=== PATIENT | male | born 1960 | race Two or more races ===

== ENCOUNTER 2022-06-12 22:24 | Inpatient (IN) | payer OTHER, SELFPAY ==
[2022-06-12 22:40] VITALS: BP 104/64; PULSE 97; RESP 17; TEMP 36.4; O2SAT 98
[2022-06-12 23:36] VITALS: BMI 27.1
--- NOTE | 2022-06-13 01:16 | PC.ADMIT ---
PT IS A 62 YEAR OLD, PRIMARILY PORTUGUESE SPEAKING MALE TRANSFERRED TO FROM [facility]. 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 15 MINUTE SAFETY CHECKS. PSYCH GROUP. PT HAS NOT SMOKED IN 21 YEARS AND DOES NOT NEED NICOTINE REPLACEMENT. PT REFUSED THE FLU VACCINE. HIS VITAL SIGNS ARE STABLE AND LABS ARE UNREMARKABLE. PT HAD CATARACTS SURGERY IN MAR 2022 AND APRIL 2022. HE REPORTS MILD, OCCASIONAL BLEEDING THAT STILL OCCURS FROM HIS CORNEAS. PT WAS ADMITTED DUE TO INCREASED DEPRESSION BUT FEELS LIKE HE IS HERE ON FALSE PRETENSES. PTS SISTER CALLED TO GET HIM EVALUATED AFTER HE TOOK 4 OF HIS 50 MG TRAZADONE PILLS. PT REPORTS THIS WAS NOT AN ATTEMPT TO OVERDOSE AND THAT HE ACCIDENTALLY TOOK IT AGAIN FORGETTING HE HAD TAKEN IT EARLIER IN THE NIGHT. PT HAS PROVIDERS AND IS MEDICATION COMPLIANT. HE IS ALERT AND ORIENTEDX4. NO KNOWN ALLERGIES. DEPRESSED AFFECT. GOOD EYE CONTACT. GOOD INSIGHT. PT HAS STABLE HOUSING, REPORTING HE LIVES WITH HIS SISTER. HE IS TO HIS OF 35 YEARS WHO IS SICK AND LIVES IN [place] CURRENTLY. PT REPORTS POOR SLEEP. GOOD APPETITE WITH NO UNINTENTIONAL WEIGHT LOSS RECENTLY. PT HAS DIABETES, HTN, AND HYPERLIPIDEMIA. EKG WAS NORMAL. PT REPORTS HE HAD A SUICIDE ATTEMPT SEVERAL WEEKS AGO BUT DID NOT ELABORATE. HE REPORTS THAT HE TYPICALLY DOUBLES HIS TRAZADONE DOSE (PRESCRIBED 25MH BUT TAKES 50MG) DAILY AT BEDTIME. PT DENIES CURRENT FEELINGS OR SI AND CAN SEEK STAFF IF FEELING SUICIDAL. PT DENIES HI, AH, VH. NO ACUTE MEDICAL CONCERNS AT THIS TIME. PT FEELS SAFE ON THE UNIT.
[2022-06-13 08:53] LABS: Glucose, Whole Blood 159 mg/dL (60-115)
[2022-06-13 09:00] LABS: Creatinine Clr Calc Pharmacy 60.8; Estimated Glomerular Filt Rate 56
[2022-06-13] MEDS: Atorvastatin Calcium 80 MG TABLET PO (09:06)
[2022-06-13] MEDS: DULoxetine HCl 20 MG CAPSULE.DR PO (09:06)
[2022-06-13] MEDS: hydroCHLOROthiazide 25 MG TABLET PO (09:06)
[2022-06-13] MEDS: Gabapentin 100 MG CAPSULE PO ×3 (09:06→19:35)
[2022-06-13] MEDS: ARIPiprazole 2 MG TABLET PO (09:06)
[2022-06-13] MEDS: Escitalopram Oxalate 10 MG TABLET PO (09:06)
[2022-06-13] MEDS: busPIRone HCl 10 MG TABLET PO ×2 (09:06→19:35)
[2022-06-13] MEDS: lisinopriL 20 MG TABLET PO (09:07)
[2022-06-13 09:15] VITALS: BP 131/79; PULSE 88; RESP 18; TEMP 36.4
[2022-06-13] MEDS: Acetaminophen 325 MG TABLET 650 MG PO (09:21)
[2022-06-13] MEDS: metFORMIN HCl 1,000 MG TABLET 1000 MG PO ×2 (09:30→16:47)
--- NOTE | 2022-06-13 12:16 | HO.PM.IMCN ---
History of Present Illness Data of Consult Service Date: 06/13/22 Requesting physician: Sixto Canales Primary Care Provider: Ninoska Ahumada MD [facility] Reason for consult: medical H&P 62-year-old male with history of boi-ayhgsuu-dnckiyzsg type 2 diabetes, hypertension, hyperlipidemia, glaucoma, history cataracts, and depression admitted to Psychiatry with consult placed hospitalist service for medical H&P. Apparently he was brought to [facility] after being found drowsy. He had taken 4 tablets (200 mg) of his trazodone. He has no physical complaints at this time. He is a former smoker. Denies any alcohol use or drug use. Review of Systems Review of Systems: General: No fevers, malaise, unintentional weight loss HEENT: No blurred vision, diplopia. No sore throat, nasal congestion, rhinorrhea, sinus pain, ear pain Cardiovascular: No chest pain, palpitations, or leg edema Respiratory: No shortness of breath, wheezing, cough GI: No abdominal pain, nausea, vomiting, diarrhea, constipation, melena, hematochezia : No dysuria, hematuria, increased urinary frequency, decreased urinary output MSK: No myalgia, back pain Neuro: No headaches, weakness, paresthesias Skin: No rashes or lesions [facility] Medical History Depression HLD (hyperlipidemia) HTN (hypertension) Type 2 diabetes mellitus Social History Household Members: Family Household Members Other:: LIVES WITH SISTER Housing: Unknown / Unable to assess Do you presently have visiting nurse or other home services: No Patient Tobacco Use Status: Former Tobacco user Quit Date: 21 YEARS AGO Tobacco use type: Cigarette Smoked in Last 30 Days: No e-Cigarette/Vaping Use: Never Used Patient Interested in Nicotine Replacement: No Patient Given Instructions on How to Stop Smoking: No Second Hand Smoke Exposure: No Use of substances other than those prescribed or required for medical reasons: No Currently Displaying Signs/Symptoms of Drug Intoxication Withdrawal: No Any prior treatment program specific to substance use: No Have you been hit, kicked, punched, or otherwise hurt by someone within the past year? If so, by whom?: No Do you feel safe in your current relationship?: Yes Is there a partner from a previous relationship who is making you feel unsafe now?: No Are you made to feel afraid or neglected: No Advance Directives: No Advance Directives Information Provided: No Do you have thoughts of harming others: None Do you have a plan to hurt others: No Plan Recently lost weight without trying: No Eating poorly because of decreased appetite: No Nutrition Risks: No Nutritional Risk Poor oral hygiene: No service: No Sexual orientation: Straight/Heterosexual Meds Allergies Allergy/AdvReac Type Severity Reaction Status Date / Time No Known Allergies Allergy Verified 06/12/22 23:40 Active Medications: Current Medications Acetaminophen (Acetaminophen 325 Mg Tablet) 650 mg PO Q6H PRN PRN Reason: Headache/Pain Mild Scale (1-3) Last Admin: 06/13/22 09:21 Dose: 650 mg Al Hydroxide/Mg Hydroxide (Magnesium Hydrox/Alum Hydrox 30 Ml Oral.Susp) 30 ml PO Q6H PRN PRN Reason: Heartburn/Nausea Aripiprazole (Aripiprazole 2 Mg Tablet) 2 mg PO DAILY [facility] Last Admin: 06/13/22 09:06 Dose: 2 mg Atorvastatin Calcium (Atorvastatin Calcium 80 Mg Tablet) 80 mg PO DAILY [facility] Last Admin: 06/13/22 09:06 Dose: 80 mg Buspirone HCl (Buspirone Hcl 10 Mg Tablet) 10 mg PO BID [facility] Last Admin: 06/13/22 09:06 Dose: 10 mg Duloxetine HCl (Duloxetine Hcl 20 Mg Capsule.Dr) 20 mg PO DAILY [facility] Last Admin: 06/13/22 09:06 Dose: 20 mg Escitalopram Oxalate (Escitalopram Oxalate 10 Mg Tablet) 10 mg PO DAILY [facility] Last Admin: 06/13/22 09:06 Dose: 10 mg Gabapentin (Gabapentin 100 Mg Capsule) 100 mg PO TID [facility] Last Admin: 06/13/22 09:06 Dose: 100 mg Hydrochlorothiazide (Hydrochlorothiazide 25 Mg Tablet) 25 mg PO DAILY [facility]; Protocol Last Admin: 06/13/22 09:06 Dose: 25 mg Hydroxyzine HCl (Hydroxyzine Hcl 25 Mg Tablet) 25 mg PO Q6H PRN PRN Reason: Anxiety Ketorolac Tromethamine (Ketorolac Tromethamine 0.5% Op 5 Ml Drops) 1 drop EYE-BOTH BID [facility] Lisinopril (Lisinopril 20 Mg Tablet) 20 mg PO DAILY [facility]; Protocol Last Admin: 06/13/22 09:07 Dose: 20 mg Magnesium Hydroxide (Milk Of Magnesia 30 Ml Oral.Susp) 30 ml PO DAILY PRN PRN Reason: Constipation Metformin HCl (Metformin Hcl 1,000 Mg Tablet) 1,000 mg PO BIDWM [facility] Last Admin: 06/13/22 09:30 Dose: 1,000 mg Nicotine Polacrilex (Nicotine Polacrilex 2 Mg Gum) 4 mg BUCCAL Q2H PRN PRN Reason: Nicotine Cravings Prednisolone Acetate (Prednisolone Acetate 1 % Oph Susp 5 Ml Drpbtl) 1 drop EYE-BOTH BID [facility] Trazodone HCl (Trazodone Hcl 50 Mg Tablet) 50 mg PO BEDTIME MRX1 PRN PRN Reason: Insomnia Home Medications Medication Instructions Recorded Confirmed Last Taken Type aripiprazole 2 mg tablet 2 mg PO DAILY 06/13/22 06/13/22 06/12/22 History atorvastatin 80 mg tablet 80 mg PO DAILY 06/13/22 06/13/22 06/12/22 History buspirone 10 mg tablet 10 mg PO BID 06/13/22 06/13/22 06/12/22 History duloxetine 20 mg capsule,delayed 20 mg PO DAILY 06/13/22 06/13/22 06/12/22 History release escitalopram oxalate 10 mg tablet 10 mg PO DAILY 06/13/22 06/13/22 06/12/22 History gabapentin 100 mg capsule 100 mg PO TID 06/13/22 06/13/22 06/12/22 History hydrochlorothiazide 25 mg tablet 25 mg PO DAILY 06/13/22 06/13/22 06/12/22 History lisinopril 20 mg tablet 20 mg PO DAILY 06/13/22 06/13/22 06/12/22 History metformin 1,000 mg tablet 1,000 mg PO BID 06/13/22 06/13/22 06/12/22 History Physical Exam Vital Signs and Narrative: Vital Signs: Last Vital Signs Temp 97.5 F 06/13/22 09:15 Pulse 88 06/13/22 09:15 Resp 18 06/13/22 09:15 BP 131/79 06/13/22 09:15 Pulse Ox 98 06/12/22 22:40 O2 Del Method Room Air 06/13/22 09:15 BMI result Body Mass Index 27.1 Constitutional - Awake and Alert, No apparent distress Eyes - PERRLA, EOMI Cardiovascular - S1S2, RRR, No edema Respiratory - Normal lung expansion, Normal respiratory effort, No respiratory distress, CTA bilaterally Gastrointestinal - NT / ND; +BS; No rebound or guarding Extremities - no calf tenderness bilaterally, no swelling Musculoskeletal - Normal inspection, normal ROM Skin - Warm/Dry Neurological - Alert & oriented x3, CN II-XII in tact, 5/5 strength BUE and BLE Psychological - Appropriate affect Results Labs 06/13/22 08:00 Labs: Laboratory Results - last 24 hr 06/13/22 06/13/22 08:00 08:48 Estim Creat Clear Calc 60.8 Estimated GFR 56 POC Glucose 159 H Assessment and Plan (1) Routine medical exam: Status: Acute Plan 62-year-old male with history of fam-vnddjao-lslefgyie type 2 diabetes, hypertension, hyperlipidemia, glaucoma, history cataracts, and depression admitted to Psychiatry with consult placed hospitalist service for medical H&P. #Depression/insomnia -plan per psychiatry #Type 2 diabetes -poc glucose -diabetic diet -humalog on ss for hyperglycemia #HTN -reasonably controlled -continue home meds #HLD -continue statin #Glaucoma -recommend home drops, contact pt pharmacy Thank you for allowing me to participate in this consult. Signing off at this time. Please do not hesitate to call for further questions. Time Spent With Patient Time: Total time managing care of this patient today ____ minutes.
--- OUTSIDE RECORDS SUMMARY | 2022-06-13 14:20 | XMS_ITS | Continuity of Care Document ---
Author Name Unknown Organization [facility] Address [address] [place] [address]- Care Team Providers Care Manager Infusion Name Role Phone Ninoska Ahumada MD Primary Care Physician Encounter [facility] [id number] Date(s): 03/25/22 - 04/24/[address] [id number] Attending Physician: Xavi Britton Admitting Physician: AdmXavi maldonado Referring Physician: AdmtrXavi Allergies, Adverse Reactions, Alerts No Known Allergies Immunizations Given and Recorded Vaccine Date Status Refusal Reason [id number] 12y+ bivalent booster vax 12/05/21 Recorded influenza virus vaccine, inactivated 1 11/21/21 Gi wenceslao 1Early/Late Reason: Early/Late Reason: Other : Pt was seen in clinic for visit 11/21. Administered vax 11/21. Documented one day late d/t issue with encounter acct #. Medications atorvastatin 80 mg oral tablet 1 tablet, By Mouth, Daily, # 30 tablet, 1 Refills, Maintenance, 03/03/22 0:11:00 EST, [facility], 174, cm, 12/03/21 13:26:00 EDT, Height Start Date: 03/03/22 Status: Ordered diclofenac 1% topical gel 1 application, Topically, 3 times a day, PRN Pain , Mild, Take on schedule 3 times per day for 5 days and then only if needed, not to exceed 32 grams/day, # 100 Gm, 1 Refills, Maintenance, 11/20/21 18:02:00 EDT, Gel, [facility], Partial fill... Start Date: 11/20/21 Status: Ordered duloxetine 30 mg oral enteric coated capsule 1 capsule = 30 mg, By Mouth, 2 times a day, Start with 1 tablet daily, if well tolerated increase to 2 tablets daily, # 60 capsule, 1 Refills, Maintenance, 03/09/22 18:19:00 EST, EC Capsule, [facility], Hold from pill pack until stable dose,... Start Date: 03/09/22 Stop Date: 05/08/22 Status: Ordered Eucerin Plus topical lotion 1 application, Topically, 2 times a day, PRN for dry skin, to affected area, # 180 mL, 3 Refills, Maintenance, 03/12/22 11:29:00 EST, Lotion, [facility], Bulgarian instructions, 1 applicationTopically 2 times a day,PRN:for dry skin,Instr:to a... Start Date: 03/12/22 Status: Ordered gabapentin 100 mg oral capsule See Instructions, Take 100mg in morning, 100mg in afternoon, and 300mg at bedtime, # 150 tablet, Refills 3, Tot. Refills 3, Maintenance, 03/27/22 17:49:00 EST, Instructions Replace Required Details, Route to Pharmacy Electronically, [facility]... Start Date: 03/27/22 Status: Ordered hydrochlorothiazide-lisinopril 12.5 mg-20 mg oral tablet 1 tablet, By Mouth, Daily, # 30 tablet, 5 Refills, Maintenance, 11/02/21 11:16:00 EDT, Tablet, [facility], 1 tablet By Mouth Daily Start Date: 11/02/21 Status: Ordered lidocaine 5% topical film 1 patch, Topically, Daily, PRN Pain , Mild, for 30 days, remove after 12 hours, # 30 patch, 2 Refills, Acute 06/07/22 18:19:00 EDT, 03/09/22 18:19:00 EST, Film, [facility], Partial fill upon patient request if the prescription is for a sched... Start Date: 03/09/22 Stop Date: 06/07/22 Status: Ordered metFORMIN 1000 mg oral tablet 1 tablet = 1,000 mg, By Mouth, 2 times a day, # 60 tablet, 5 Refills, Maintenance, 03/08/22 13:32:00 EST, Tablet, [facility], For next bubble pack put in morning and bedtime bubbles, 174, cm, 12/03/21 13:26:00 EDT, Height Start Date: 03/08/22 Status: Ordered Prodigy No Code Test Strips Prodigy No Code Test Strips, See Instructions, # 50 each, Refills 11, Tot. Refills 11, Maintenance,use to test blood sugar BID as directed. PA approved specifically for [facility] [address]-03, 12/18/21 14:54:00 EDT, Supply, 174, cm, 12/03/21 13:26:00 EDT,... Start Date: 12/18/21 Status: Ordered Prodigy Twist Top 28G Lancets Prodigy Twist Top 28G Lancets, See Instructions, # 100 each, Refills 11, Tot. Refills 11, Maintenance, use to test blood sugar BID as directed, [facility] [id number], 12/18/21 14:54:00 EDT, Supply, 174, cm, 12/03/21 13:26:00 EDT, Height Start Date: 12/18/21 Status: Ordered Prodigy Voice Meter Prodigy Voice Meter, See Instructions, # 1 each, Refills 0, Tot. Refills 0, Maintenance, use to test blood sugar BID as directed. PA approved for [facility] [id number] specifically, 12/18/21 14:54:00 EDT, Supply, 174, cm, 12/03/21 13:26:00 EDT, Height Start Date: 12/18/21 Status: Ordered Trulicity Pen 0.75 mg/0.5 mL subcutaneous solution 0.5 mL = 0.75 mg, Subcutaneous Injection, Every week, rotate injection sites, # 2.5 mL, 5 Refills, Maintenance, 03/25/22 14:47:00 EST, Solution, [facility], Partial fill upon patient request if the prescription is for a schedule II opioid Start Date: 03/25/22 Stop Date: 09/21/22 Status: Ordered Problem List Condition Confirmation Course Effective Dates Status H ealth Status Informant Diabetes Confirmed Active Glaucoma Confirmed Active Hyperlipidemia Confirmed Active Hypertension Confirmed Active Diabetic neuropathy Confirmed Active Onychomycosis Confirmed Active Diabetic retinopathy Confirmed Active Social History Social History Type Response Smoking Status Former smoker, quit more than 30 days ago;Never; Other: quit at age 21; entered on: 11/02/21 Sex Patient Care team information Care Team Personnel Name: Ninoska Ahumada MD Position: S Resident Member Role: PCP Address: Address: [address] [place] [address]- Care Team Related Persons Name: TIA SOMMER Address: home [address] [place] [address]
--- OUTSIDE RECORDS SUMMARY | 2022-06-13 14:20 | XMS_ITS | Continuity of Care Document ---
Author Name Unknown Organization [facility] Address [address] [place] [id number]- Care Team Providers Care Information Security Officer Name Role Phone Ninoska Ahumada MD Primary Care Physician [phone] Encounter [facility] Date(s): 04/18/22 - 05/23/[address] [address]- Encounter Diagnosis Low back pain, unspecified(Final) - Discharge Disposition: A-D/C Home Attending Physician: Jelena Rosado MD Admitting Physician: Jelena Rosado MD Referring Physician: Jelena Rosado MD Allergies, Adverse Reactions, Alerts No Known Allergies Immunizations Given and Recorded Vaccine Date Status Refusal Reason [id number] 12y+ bivalent booster vax 12/05/21 Recorded influenza virus vaccine, inactivated 1 11/21/21 Gi ewnceslao 1Early/Late Reason: Early/Late Reason: Other : Pt was seen in clinic for visit 11/21. Administered vax 11/21. Documented one day late d/t issue with encounter acct #. Medications atorvastatin 80 mg oral tablet 1 tablet, By Mouth, Daily, # 30 tablet, 1 Refills, Maintenance, 03/03/22 0:11:00 EST, [facility], 174, cm, 12/03/21 13:26:00 EDT, Height Start Date: 03/03/22 Status: Ordered diclofenac 1% topical gel 1 application, Topically, 3 times a day, PRN Pain , Mild, Take on schedule 3 times per day for 5 days and then only if needed, not to exceed 32 grams/day, # 100 Gm, 1 Refills, Maintenance, 11/20/21 18:02:00 EDT, Gel, [facility], Partial fill... Start Date: 11/20/21 Status: Ordered duloxetine 30 mg oral enteric coated capsule 1 capsule = 30 mg, By Mouth, 2 times a day, Start with 1 tablet daily, if well tolerated increase to 2 tablets daily, # 60 capsule, 1 Refills, Maintenance, 03/09/22 18:19:00 EST, EC Capsule, [facility], Hold from pill pack until stable dose,... Start Date: 03/09/22 Stop Date: 05/08/22 Status: Ordered Eucerin Plus topical lotion 1 application, Topically, 2 times a day, PRN for dry skin, to affected area, # 180 mL, 3 Refills, Maintenance, 03/12/22 11:29:00 EST, Lotion, [facility], Salvadorean instructions, 1 applicationTopically 2 times a day,PRN:for dry skin,Instr:to a... Start Date: 03/12/22 Status: Ordered gabapentin 100 mg oral capsule See Instructions, Take 100mg in morning, 100mg in afternoon, and 300mg at bedtime, # 150 tablet, Refills 3, Tot. Refills 3, Maintenance, 03/27/22 17:49:00 EST, Instructions Replace Required Details, Route to Pharmacy Electronically, [facility]... Start Date: 03/27/22 Status: Ordered hydrochlorothiazide-lisinopril 12.5 mg-20 mg oral tablet 1 tablet, By Mouth, Daily, # 30 tablet, 5 Refills, Maintenance, 11/02/21 11:16:00 EDT, Tablet, [facility], 1 tablet By Mouth Daily Start Date: 11/02/21 Status: Ordered lidocaine 5% topical film 1 patch, Topically, Daily, PRN Pain , Mild, for 30 days, remove after 12 hours, # 30 patch, 2 Refills, Acute 06/07/22 18:19:00 EDT, 03/09/22 18:19:00 EST, Film, [facility], Partial fill upon patient request if the prescription is for a sched... Start Date: 03/09/22 Stop Date: 06/07/22 Status: Ordered metFORMIN 1000 mg oral tablet 1 tablet = 1,000 mg, By Mouth, 2 times a day, # 60 tablet, 5 Refills, Maintenance, 03/08/22 13:32:00 EST, Tablet, [facility], For next bubble pack put in morning and bedtime bubbles, 174, cm, 12/03/21 13:26:00 EDT, Height Start Date: 03/08/22 Status: Ordered Prodigy No Code Test Strips Prodigy No Code Test Strips, See Instructions, # 50 each, Refills 11, Tot. Refills 11, Maintenance,use to test blood sugar BID as directed. PA approved specifically for [facility] [id number], 12/18/21 14:54:00 EDT, Supply, 174, cm, 12/03/21 13:26:00 EDT,... Start Date: 12/18/21 Status: Ordered Prodigy Twist Top 28G Lancets Prodigy Twist Top 28G Lancets, See Instructions, # 100 each, Refills 11, Tot. Refills 11, Maintenance, use to test blood sugar BID as directed, [facility] [id number], 12/18/21 14:54:00 EDT, Supply, 174, cm, 12/03/21 13:26:00 EDT, Height Start Date: 12/18/21 Status: Ordered Prodigy Voice Meter Prodigy Voice Meter, See Instructions, # 1 each, Refills 0, Tot. Refills 0, Maintenance, use to test blood sugar BID as directed. PA approved for [facility] [id number] specifically, 12/18/21 14:54:00 EDT, Supply, 174, cm, 12/03/21 13:26:00 EDT, Height Start Date: 12/18/21 Status: Ordered Trulicity Pen 0.75 mg/0.5 mL subcutaneous solution 0.5 mL = 0.75 mg, Subcutaneous Injection, Every week, rotate injection sites, # 2.5 mL, 5 Refills, Maintenance, 03/25/22 14:47:00 EST, Solution, [facility], Partial fill upon patient request if the prescription is for a schedule II opioid . Start Date: 03/25/22 Stop Date: 09/21/22 Status: [...] Resident Member Role: PCP Address: Address: [address] [place] [address]- Care Team Related Persons Name: TIA SOMMER Address: [address] [place] [address]
--- OUTSIDE RECORDS SUMMARY | 2022-06-13 14:20 | XMS_ITS | Continuity of Care Document ---
Author Name Unknown Organization [facility] Address [address] [place] [address]- Care Team Providers Care Driver Service Technician Name Role Phone Ninoska Ahumada MD Primary Care Physician En[place] [facility] Date(s): 10/31/21 - 11/30/[address] [address] Allergies, Adverse Reactions, Alerts No Known Allergies Immunizations Given and Recorded Vaccine Date Status Refusal Reason influenza virus vaccine, inactivated 1 11/21/21 Gi wenceslao 1Early/Late Reason: Early/Late Reason: Other : Pt was seen in clinic for visit 11/21. Administered vax 11/21. Documented one day late d/t issue with encounter acct #. Medications atorvastatin 20 mg oral tablet 1 tablet = 20 mg, By Mouth, Daily, # 30 tablet, 5 Refills, Maintenance, 11/02/21 11:17:00 EDT, Tablet, [facility] Start Date: 11/02/21 Status: Ordered Contour Next EZ Test Strips See Instructions, # 200 each, Refills 3, Tot. Refills 3, Maintenance, To check POC glucose twice per day for diabetes mellitus type 2, 11/20/21 17:49:00 EDT, Supply, 174, cm, 11/20/21 15:40:00 EDT, Height Start Date: 11/20/21 Status: Ordered diclofenac 1% topical gel 1 application, Topically, 3 times a day, PRN Pain , Mild, Take on schedule 3 times per day for 5 days and then only if needed, not to exceed 32 grams/day, # 100 Gm, 1 Refills, Maintenance, 11/20/21 18:02:00 EDT, Gel, [facility], Partial fill... Start Date: 11/20/21 Status: Ordered Freestyle Lite Lancets See Instructions, # 100 each, Refills 5, Tot. Refills 5, Maintenance, use to check BS 2 times a daydx: E: 11.9, 11/02/21 11:22:00 EDT, Compound Start Date: 11/02/21 Stop Date: 05/01/22 Status: Ordered Freestyle Lite Test Strips See Instructions, # 100 each, Refills 5, Tot. Refills 5, Maintenance, FSBS 2 times aday Dx: E: 11.9, 11/02/21 11:22:00 EDT, Compound Start Date: 11/02/21 Status: Ordered gabapentin 100 mg oral capsule See Instructions, Take 100mg in morning, 100mg in afternoon, and 300mg at bedtime, # 150 tablet, Refills 3, Tot. Refills 3, Maintenance, 11/20/21 17:50:00 EDT, Instructions Replace Required Details, Route to Pharmacy Electronically, [facility]... Start Date: 11/20/21 Status: Ordered hydrochlorothiazide-lisinopril 12.5 mg-20 mg oral tablet 1 tablet, By Mouth, Daily, # 30 tablet, 5 Refills, Maintenance, 11/02/21 11:16:00 EDT, Tablet, [facility], 1 tablet By Mouth Daily Start Date: 11/02/21 Status: Ordered metFORMIN 1000 mg oral tablet 1 tablet = 1,000 mg, By Mouth, 2 times a day, # 60 tablet, 5 Refills, Maintenance, 11/02/21 11:18:00 EDT, Tablet, [facility] Start Date: 11/02/21 Status: Ordered Trulicity Pen 0.75 mg/0.5 mL subcutaneous solution 0.5 mL = 0.75 mg, Subcutaneous Injection, Every week, rotate injection sites, # 2.5 mL, 3 Refills, Maintenance, 11/20/21 17:48:00 EDT, Solution, [facility], Partial fill upon patient request if the prescription is for a schedule II opioid Start Date: 11/20/21 Stop Date: 03/20/22 Status: Ordered Problem List Condition Confirmation Course Effective Dates Status H ealth Status Informant Diabetes Confirmed Active Hyperlipidemia Confirmed Active Hypertension Confirmed Active Diabetic neuropathy Confirmed Active Onychomycosis Confirmed Active Social History Social History Type Response Smoking Status Former smoker, quit more than 30 days ago;Never; Other: quit at age 21; entered on: 11/02/21 Sex Patient Care team information Personnel Name: Ninoska Ahumada MD Address: Address: [address] [place] [id number]
--- OUTSIDE RECORDS SUMMARY | 2022-06-13 14:20 | XMS_ITS | Continuity of Care Document ---
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 Administered vax 11/21. Documented one day late d/t issue with encounter acct #. Medications atorvastatin 80 mg oral tablet 1 tablet = 80 mg, By Mouth, Daily, # 90 tablet, 0 Refills, Maintenance, 12/03/21 13:31:00 EDT, Tablet, [facility], Partial fill upon patient request if the prescription is for a schedule IIopioid drug., 174, cm, 12/03/21 13:26:00 EDT, Height Start Date: 12/03/21 Status: Ordered Contour glucometer Contour glucometer, See Instructions, # 1 each, Refills 0, Tot. Refills 0, Maintenance, Use every day to measure blood sugar levels, 12/05/21 15:40:00 EDT, Supply, 174, cm, 12/03/21 13:26:00 EDT, Height Start Date: 12/05/21 Status: Ordered Contour lancets Contour lancets, See Instructions, # 90 each, Refills 0, Tot. Refills 0, Maintenance, Use 3 times aday, 12/05/21 15:42:00 EDT, Supply, 174, cm, 12/03/21 13:26:00 EDT, Height Start Date: 12/05/21 Status: Ordered Contour Next EZ Test Strips See Instructions, # 200 each, Refills 3, Tot. Refills 3, Maintenance, To check POC glucose twice per day for diabetes mellitus type 2, 11/20/21 17:49:00 EDT, Supply, 174, cm, 11/20/21 15:40:00 EDT, Height Start Date: 11/20/21 Status: Ordered cyclobenzaprine 5 mg oral tablet 1 tablet = 5 mg, By Mouth, Daily, for 14 days, # 14 tablet, 0 Refills, Acute 12/17/21 13:55:00 EDT,12/03/21 13:55:00 EDT, Tablet, [facility], Partial fill upon patient request if the prescription is for a schedule II opioid drug., 174, cm,... Start Date: 12/03/21 Stop Date: 12/17/21 Status: Ordered diclofenac 1% topical gel 1 application, Topically, 3 times a day, PRN Pain , Mild, Take on schedule 3 times per day for 5 days and then only if needed, not to exceed 32 grams/day, # 100 Gm, 1 Refills, Maintenance, 11/20/21 18:02:00 EDT, Gel, [facility], Partial fill... Start Date: 11/20/21 Status: [...] Replace Required Details, Route to Pharmacy Electronically, [email or web address]... Start Date: 11/20/21 Status: Ordered hydrochlorothiazide-lisinopril 12.5 mg-20 mg oral tablet 1 tablet, By Mouth, Daily, # 30 tablet, 5 Refills, Maintenance, 11/02/21 11:16:00 EDT, Tablet, [facility], 1 tablet By Mouth Daily Start Date: 11/02/21 Status: Ordered metFORMIN 1000 mg oral tablet 1 tablet = 1,000 mg, By Mouth, 2 times a day, # 60 tablet, 5 Refills, Maintenance, 11/02/21 11:18:00 EDT, Tablet, [facility] Start Date: 11/02/21 Status: Ordered Trulicity Pen 0.75 mg/0.5 mL subcutaneous solution 0.5 mL = 0.75 mg, Subcutaneous Injection, Every week, rotate injection sites, # 2.5 mL, 3 Refills, Maintenance, 11/20/21 17:48:00 EDT, Solution, [facility], Partial fill upon patient request if the prescription is for a schedule II opioid . Start Date: 11/20/21 Stop Date: 03/20/22 Status: [...] Personnel Name: Ninoska Ahumada MD Address: Address: [address] [place] [address]
--- OUTSIDE RECORDS SUMMARY | 2022-06-13 14:20 | XMS_ITS | Continuity of Care Document ---
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 Name Role Phone Brandyn HINES, Ninoska Nieves Primary Care Physician [phone] Encounter [facility] Date(s): 12/03/21 - 01/02/[address] [address]- Attending Physician: Xavi Britton Admitting Physician: AdmXavi [...] 0 Refills, Maintenance, 12/03/21 13:31:00 EDT, Tablet, [facility], Partial fill upon patient request if the prescription is for a schedule IIopioid drug., 174, cm, 12/03/21 13:26:00 EDT, Height Start Date: 12/03/21 Status: Ordered diclofenac 1% topical gel 1 application, Topically, 3 times a day, PRN Pain , Mild, Take on schedule 3 times per day for 5 days and then only if needed, not to exceed 32 grams/day, # 100 Gm, 1 Refills, Maintenance, 11/20/21 18:02:00 EDT, Gel, [facility], Partial fill... Start Date: 11/20/21 Status: Ordered gabapentin 100 mg oral capsule See Instructions, Take 100mg in morning, 100mg in afternoon, and 300mg at bedtime, # 150 tablet, Refills 3, Tot. Refills 3, Maintenance, 11/20/21 17:50:00 EDT, Instructions Replace Required Details, Route to Pharmacy Electronically, [facility]... Start Date: 11/20/21 Status: Ordered hydrochlorothiazide-lisinopril 12.5 mg-20 mg oral tablet 1 tablet, By Mouth, Daily, # 30 tablet, 5 Refills, Maintenance, 11/02/21 11:16:00 EDT, Tablet, [facility], 1 tablet By Mouth Daily Start Date: 11/02/21 Status: Ordered metFORMIN 1000 mg oral tablet 1 tablet = 1,000 mg, By Mouth, 2 times a day, # 60 tablet, 5 Refills, Maintenance, 11/02/21 11:18:00 EDT, Tablet, [facility] Start Date: 11/02/21 Status: Ordered Prodigy No Code Test Strips Prodigy No Code Test Strips, See Instructions, # 50 each, Refills 11, Tot. Refills 11, Maintenance,use to test blood sugar BID as directed. PA approved specifically for [facility] [address]-54, 12/18/21 14:54:00 EDT, Supply, 174, cm, 12/03/21 13:26:00 EDT,... Start Date: 12/18/21 Status: Ordered Prodigy Twist Top 28G Lancets Prodigy Twist Top 28G Lancets, See Instructions, # 100 each, Refills 11, Tot. Refills 11, Maintenance, use to test blood sugar BID as directed, [facility] [id number], 12/18/21 14:54:00 EDT, Supply, 174, cm, 12/03/21 13:26:00 EDT, Height Start Date: 12/18/21 Status: Ordered Prodigy Voice Meter Prodigy Voice Meter, See Instructions, # 1 each, Refills 0, Tot. Refills 0, Maintenance, use to test blood sugar BID as directed. PA approved for [facility] [id number] specifically, 12/18/21 14:54:00 EDT, Supply, 174, cm, 12/03/21 13:26:00 EDT, Height Start Date: 12/18/21 Status: Ordered Trulicity Pen 0.75 mg/0.5 mL subcutaneous solution 0.5 mL = 0.75 mg, Subcutaneous Injection, Every week, rotate injection sites, # 2.5 mL, 3 Refills, Maintenance, 11/20/21 17:48:00 EDT, Solution, [facility], Partial fill upon patient request if [...] S Resident Member Role: PCP Address: Address: [address] [place] [address]- Care Team Related Persons Name: TIA SOMMER Address: home [address] [place] [address]
--- OUTSIDE RECORDS SUMMARY | 2022-06-13 14:20 | XMS_ITS | Continuity of Care Document ---
Author Name Unknown Organization [facility] Address [address] [place] [address]- Care Team Providers Care Advertising Dispatch Clerk Name Role Phone Ninoska Ahumada MD Primary Care Physician [facility]counter [facility] Date(s): 03/14/22 - 04/13/[address] [address]- Allergies, Adverse Reactions, Alerts No Known Allergies Immunizations Given and Recorded Vaccine Date Status Refusal Reason [id number] 12y+ bivalent booster vax 12/05/21 Recorded influenza virus vaccine, inactivated 1 11/21/21 Gi wenceslao 1Early/Late Reason: Early/Late Reason: Other : Pt was seen in clinic for visit 11/21. Administered vax 11/21. Documented one day late d/t issue with encounter acct #. Medications atorvastatin 80 mg oral tablet 1 tablet, By Mouth, Daily, # 30 tablet, 1 Refills, Maintenance, 03/03/22 0:11:00 EST, [facility], 174, cm, 12/03/21 13:26:00 EDT, Height Start Date: 03/03/22 Status: Ordered diclofenac 1% topical gel 1 application, Topically, 3 times a day, PRN Pain , Mild, Take on schedule 3 times per day for 5 days and then only if needed, not to exceed 32 grams/day, # 100 Gm, 1 Refills, Maintenance, 11/20/21 18:02:00 EDT, Gel, [facility], Partial fill... Start Date: 11/20/21 Status: Ordered duloxetine 30 mg oral enteric coated capsule 1 capsule = 30 mg, By Mouth, 2 times a day, Start with 1 tablet daily, if well tolerated increase to 2 tablets daily, # 60 capsule, 1 Refills, Maintenance, 03/09/22 18:19:00 EST, EC Capsule, [facility], Hold from pill pack until stable dose,... Start Date: 03/09/22 Stop Date: 05/08/22 Status: Ordered Eucerin Plus topical lotion 1 application, Topically, 2 times a day, PRN for dry skin, to affected area, # 180 mL, 3 Refills, Maintenance, 03/12/22 11:29:00 EST, Lotion, [facility], Mauritian instructions, 1 applicationTopically 2 times a day,PRN:for dry skin,Instr:to a... Start Date: 03/12/22 Status: Ordered gabapentin 100 mg oral capsule See Instructions, Take 100mg in morning, 100mg in afternoon, and 300mg at bedtime, # 150 tablet, Refills 3, Tot. Refills 3, Maintenance, 03/27/22 17:49:00 EST, Instructions Replace Required Details, Route to Pharmacy Electronically, [facility]... Start Date: 03/27/22 Status: Ordered hydrochlorothiazide-lisinopril 12.5 mg-20 mg oral tablet 1 tablet, By Mouth, Daily, # 30 tablet, 5 Refills, Maintenance, 11/02/21 11:16:00 EDT, Tablet, [facility], 1 tablet By Mouth Daily Start Date: 11/02/21 Status: Ordered lidocaine 5% topical film 1 patch, Topically, Daily, PRN Pain , Mild, for 30 days, remove after 12 hours, # 30 patch, 2 Refills, Acute 06/07/22 18:19:00 EDT, 03/09/22 18:19:00 EST, Film, [facility], Partial fill upon patient request if the prescription is for a sched... Start Date: 03/09/22 Stop Date: 06/07/22 Status: Ordered metFORMIN 1000 mg oral tablet 1 tablet = 1,000 mg, By Mouth, 2 times a day, # 60 tablet, 5 Refills, Maintenance, 03/08/22 13:32:00 EST, Tablet, [facility], For next bubble pack put in morning and bedtime bubbles, 174, cm, 12/03/21 13:26:00 EDT, Height Start Date: 03/08/22 Status: Ordered Prodigy No Code Test Strips Prodigy No Code Test Strips, See Instructions, # 50 each, Refills 11, Tot. Refills 11, Maintenance,use to test blood sugar BID as directed. PA approved specifically for [facility] [address]-61, 12/18/21 14:54:00 EDT, Supply, 174, cm, 12/03/21 13:26:00 EDT,... Start Date: 12/18/21 Status: Ordered Prodigy Twist Top 28G Lancets Prodigy Twist Top 28G Lancets, See Instructions, # 100 each, Refills 11, Tot. Refills 11, Maintenance, use to test blood sugar BID as directed, [facility] [id number], 12/18/21 14:54:00 EDT, Supply, 174, cm, 12/03/21 13:26:00 EDT, Height Start Date: 12/18/21 Status: Ordered Prodigy Voice Meter Prodigy Voice Meter, See Instructions, # 1 each, Refills 0, Tot. Refills 0, Maintenance, use to test blood sugar BID as directed. PA approved for [facility] [id number] specifically, 12/18/21 14:54:00 EDT, Supply, 174, cm, 12/03/21 13:26:00 EDT, Height Start Date: 12/18/21 Status: Ordered Trulicity Pen 0.75 mg/0.5 mL subcutaneous solution 0.5 mL = 0.75 mg, Subcutaneous Injection, Every week, rotate injection sites, # 2.5 mL, 5 Refills, Maintenance, 03/25/22 14:47:00 EST, Solution, [facility], Partial fill upon patient request if the prescription is for a schedule II opioid dr... Start Date: 03/25/22 Stop Date: 09/21/22 Status: [...] Resident Member Role: PCP Address: Address: [address] [place] [address]- Care Team Related Persons Name: TIA SOMMER Address: home [address] [place] [address]
--- OUTSIDE RECORDS SUMMARY | 2022-06-13 14:20 | XMS_ITS | Continuity of Care Document ---
Author Name Unknown Organization [facility] Address [address] [place] [address]- Care Team Providers Care Inspector Weights And Measures Name Role Phone Brandyn HINES, Ninoska Nieves Primary Care Physician [phone] Encounter [facility] Date(s): 02/22/22 - 03/24/[address] [address]- Allergies, Adverse Reactions, Alerts No Known Allergies Immunizations Given and Recorded Vaccine Date Status Refusal Reason [id number] 12y+ bivalent booster vax 12/05/21 Recorded influenza virus vaccine, inactivated 1 11/21/21 Gi wenceslao 1Early/Late Reason: Early/Late Reason: Other : Pt was seen in clinic for visit 11/21. Administered vax 11/21. Documented one day late d/t issue with encounter acct #. Medications atorvastatin 80 mg oral tablet 1 tablet, By Mouth, Daily, # 30 tablet, 1 Refills, Maintenance, 03/03/22 0:11:00 EST, [facility], 174, cm, 12/03/21 13:26:00 EDT, Height Start Date: 03/03/22 Status: Ordered diclofenac 1% topical gel 1 application, Topically, 3 times a day, PRN Pain , Mild, Take on schedule 3 times per day for 5 days and then only if needed, not to exceed 32 grams/day, # 100 Gm, 1 Refills, Maintenance, 11/20/21 18:02:00 EDT, Gel, [facility], Partial fill... Start Date: 11/20/21 Status: Ordered duloxetine 30 mg oral enteric coated capsule 1 capsule = 30 mg, By Mouth, 2 times a day, Start with 1 tablet daily, if well tolerated increase to 2 tablets daily, # 60 capsule, 1 Refills, Maintenance, 03/09/22 18:19:00 EST, EC Capsule, [facility], Hold from pill pack until stable dose,... Start Date: 03/09/22 Stop Date: 05/08/22 Status: Ordered Eucerin Plus topical lotion 1 application, Topically, 2 times a day, PRN for dry skin, to affected area, # 180 mL, 3 Refills, Maintenance, 03/12/22 11:29:00 EST, Lotion, [facility], Ecuadorean instructions, 1 applicationTopically 2 times a day,PRN:for dry skin,Instr:to a... Start Date: 03/12/22 Status: Ordered gabapentin 100 mg oral capsule See Instructions, Take 100mg in morning, 100mg in afternoon, and 300mg at bedtime, # 150 tablet, Refills 3, Tot. Refills 3, Maintenance, 11/20/21 17:50:00 EDT, Instructions Replace Required Details, Route to Pharmacy Electronically, [facility]... Start Date: 11/20/21 Status: Ordered hydrochlorothiazide-lisinopril 12.5 mg-20 mg oral tablet 1 tablet, By Mouth, Daily, # 30 tablet, 5 Refills, Maintenance, 11/02/21 11:16:00 EDT, Tablet, [facility], 1 tablet By Mouth Daily Start Date: 11/02/21 Status: Ordered lidocaine 5% topical film 1 patch, Topically, Daily, PRN Pain , Mild, for 30 days, remove after 12 hours, # 30 patch, 2 Refills, Acute 06/07/22 18:19:00 EDT, 03/09/22 18:19:00 EST, Film, [facility], Partial fill upon patient request if the prescription is for a sched... Start Date: 03/09/22 Stop Date: 06/07/22 Status: Ordered metFORMIN 1000 mg oral tablet 1 tablet = 1,000 mg, By Mouth, 2 times a day, # 60 tablet, 5 Refills, Maintenance, 03/08/22 13:32:00 EST, Tablet, [facility], For next bubble pack put in morning and bedtime bubbles, 174, cm, 12/03/21 13:26:00 EDT, Height Start Date: 03/08/22 Status: Ordered Prodigy No Code Test Strips Prodigy No Code Test Strips, See Instructions, # 50 each, Refills 11, Tot. Refills 11, Maintenance,use to test blood sugar BID as directed. PA approved specifically for [facility] [id number], 12/18/21 14:54:00 EDT, Supply, 174, cm, 12/03/21 13:26:00 EDT,... Start Date: 12/18/21 Status: Ordered Prodigy Twist Top 28G Lancets Prodigy Twist Top 28G Lancets, See Instructions, # 100 each, Refills 11, Tot. Refills 11, Maintenance, use to test blood sugar BID as directed, [facility] [id number], 12/18/21 14:54:00 EDT, Supply, 174, cm, 12/03/21 13:26:00 EDT, Height Start Date: 12/18/21 Status: Ordered Prodigy Voice Meter Prodigy Voice Meter, See Instructions, # 1 each, Refills 0, Tot. Refills 0, Maintenance, use to test blood sugar BID as directed. PA approved for [facility] [id number] specifically, 12/18/21 14:54:00 EDT, Supply, 174, cm, 12/03/21 13:26:00 EDT, Height Start Date: 12/18/21 Status: Ordered Trulicity Pen 0.75 mg/0.5 mL subcutaneous solution 0.5 mL = 0.75 mg, Subcutaneous Injection, Every week, rotate injection sites, # 2.5 mL, 5 Refills, Maintenance, 03/22/22 10:31:00 EST, Solution, [facility], Partial fill upon patient request if the prescription is for a schedule II opioid . Start Date: 03/22/22 Stop Date: 09/18/22 Status: Ordered Problem List Condition Confirmation Course [...] Resident Member Role: PCP Address: Address: [address] [place] [address]- [place] Care Team Related Persons Name: TIA SOMMER Address: home [address] [place] [address]
[2022-06-13 16:22] LABS: Glucose, Whole Blood 166 mg/dL (60-115)
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
[2022-06-13 19:44] LABS: Glucose, Whole Blood 172 mg/dL (60-115)
[2022-06-13] MEDS: prednisoLONE Acetate 1 % Oph Susp 5 ML DRPBTL 1 DROP EYE-BOTH (20:16)
--- NOTE | 2022-06-13 22:19 | HE.PHANOTE ---
Pharmacy has received patient's Trulicity. When med was received by RN, it was not cold. No one able to confirm how long it has been out of the fridge. Medication is only good for 14 days out of the fridge. Since medication was last dispensed on 06/04/22, we can only assume medication is good until 14 days later on 06/18/22. Will have AM pharmacy call [facility] to confirm when medications was picked up. Dr. Gutierrez aware that we may only be able to use 1 of the 4 syringes that were received. Tiny Perez, PharmD
--- NOTE | 2022-06-14 07:42 | HE.PHANOTE ---
RE TRULICTY PATIENT HAD BOX OF FOUR TRULICITY PENS BROUGHT IN ON 06/13. SINCE COLD CHAIN CANNOT BE VERIFIED, UP TO 2 PENS ARE GOOD SINCE DATE FILLED. I WILL BE SENDING THE DOSE UP FOR 06/14 AND LABELING THE PEN DUE FOR 06/21. [facility]
[2022-06-14 07:51] LABS: Glucose, Whole Blood 143 mg/dL (60-115)
[2022-06-14] MEDS: Gabapentin 100 MG CAPSULE PO ×3 (08:28→21:10)
[2022-06-14] MEDS: hydroCHLOROthiazide 12.5 MG TABLET PO (08:28)
[2022-06-14] MEDS: Atorvastatin Calcium 80 MG TABLET PO (08:28)
[2022-06-14] MEDS: busPIRone HCl 10 MG TABLET PO (08:28)
[2022-06-14] MEDS: lisinopriL 20 MG TABLET PO (08:28)
[2022-06-14] MEDS: Escitalopram Oxalate 10 MG TABLET PO (08:28)
[2022-06-14] MEDS: DULoxetine HCl 20 MG CAPSULE.DR PO (08:28)
[2022-06-14] MEDS: metFORMIN HCl 1,000 MG TABLET 1000 MG PO ×2 (08:28→17:08)
[2022-06-14] MEDS: ARIPiprazole 2 MG TABLET PO (08:28)
[2022-06-14] MEDS: Acetaminophen 325 MG TABLET 650 MG PO (08:28)
[2022-06-14 08:31] VITALS: BP 118/74; PULSE 85; RESP 18; TEMP 36.2; O2SAT 99
[2022-06-14] MEDS: prednisoLONE Acetate 1 % Oph Susp 5 ML DRPBTL 1 DROP EYE-BOTH ×2 (08:47→21:11)
[2022-06-14] MEDS: Ibuprofen 800 MG TABLET PO (10:06)
[2022-06-14] MEDS: Lidocaine 4 % Patch ADH..PATCH 1 PATCH TRANSDERMA (10:07)
[2022-06-14 10:56] LABS: Alanine Aminotransferase 19 U/L (0-40); Alkaline Phosphatase 51 U/L (39-117); Anion Gap 14 (12-20); Aspartate Amino Transferase 16 U/L (5-37); Blood Urea Nitrogen 27 mg/dL (9-16); Calcium 9.4 mg/dL (8.4-10.2); Carbon Dioxide 27 mmol/L (22-29); Chloride 103 mmol/L (96-108); Creatinine Clr Calc Pharmacy 73.9; Estimated Glomerular Filt Rate > 60; Glucose Fasting 153 mg/dL (60-99); Potassium 4.6 mmol/L (3.3-5.1); Sodium 139 mmol/L (135-145)
[2022-06-14] MEDS: Ketorolac Tromethamine 0.5% Op 5 ML DROPS 1 DROP EYE-BOTH ×3 (11:16→21:12)
[2022-06-14 12:09] LABS: Glucose, Whole Blood 129 mg/dL (60-115)
--- NOTE | 2022-06-14 15:16 | HO.PSYCHPN ---
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 Reports sleeping well, meds effective. Discussed family meeting, pt agrees, however, sister Annabel is going away and [place] will need transportation and translation, Annabel will return 06/24. Call to Annabel [phone] She asks that we not share her information with pt at this time. Current OD is #3 and family worries pt will suicide. Irlanda reports pt came to [place] as he became angry with his 14 yo grandaughter when she shared with him she is bisexual. In an effort to convert her, he exposed her to pornography. She told pt's daughter and they asked him to leave. He went to sister's home. Pt's sons are so upset with him that they want to harm him (they are in [place]). Sister [place] is in poor health. Her daughter will not allow pt to return as his acting out effects her health (she had a CVA in 2021 and they fear she will have another if she finds pt overdosing again). is in [place] and very ill- #2 CVA's, Aneurysm. Pt when he last overdosed, called to blame her for his actions as she will not come to [place] ('s health is so poor she cannot travel) Pt cannot travel as he will meet Dr. Navarro, a retinal specialist, on July 06 (he believes October, however, Annabel secured an appt in June). As a result of the call from pt to , the children have blocked him so as he will not upset her. As a result of above, pt is homeless and is not welcome with family. He will need long-term options on discharge. Medication Compliance: Yes Side effects from medications: No Mental Status Exam Mental Status Exam Patient Appearance: Appropriate Patient Orientation: Person, Place, Time and Situation Level of Consciousness: Alert Patient Behavior: Appropriate, Talkative, Cooperative and Good Eye Contact Mood Description: Sad Affect Description: Flat and Apprehensive Patient Cognition Impaired: No Ability to Follow Directions: Good Speech Pattern: Spontaneous Speech Memory Description: Intact Hallucinations: None Delusions: Not Present Thought Process: Distracted Thought Content: positive for [place], positive for Circumstantial and positive for Suicidal Ideation (denies) Depressive Symptoms: Increased Anxiety and Sleeping More Than Usual Judgement: Good Diagnostics Vital Signs (24Hr): Vital Signs - 24 hr 06/14/22 08:31 Temperature 97.1 F Pulse Rate 85 Respiratory Rate 18 Blood Pressure 118/74 Pulse Oximetry 99 Oxygen Delivery Method Room Air BMI result Body Mass Index 27.1 Labs 06/14/22 08:03 Labs: Laboratory Results - last 48 hr 06/13/22 06/13/22 06/13/22 08:00 08:48 16:17 Sodium Potassium Chloride Carbon Dioxide Anion Gap BUN Creatinine 1.30 Estim Creat Clear Calc 60.8 Estimated GFR 56 POC Glucose 159 H 166 H Fasting Glucose Calcium Total Bilirubin AST ALT Alkaline Phosphatase Total Protein Albumin 06/13/22 06/14/22 06/14/22 19:39 07:47 08:03 Sodium 139 Potassium 4.6 Chloride 103 Carbon Dioxide 27 Anion Gap 14 BUN 27 H Creatinine 1.07 Estim Creat Clear Calc 73.9 Estimated GFR > 60 POC Glucose 172 H 143 H Fasting Glucose 153 H Calcium 9.4 Total Bilirubin 1.0 AST 16 ALT 19 Alkaline Phosphatase 51 Total Protein 7.0 Albumin 4.0 06/14/22 12:05 Sodium Potassium Chloride Carbon Dioxide Anion Gap BUN Creatinine Estim Creat Clear Calc Estimated GFR POC Glucose 129 H Fasting Glucose Calcium Total Bilirubin AST ALT Alkaline Phosphatase Total Protein Albumin Medications Medications Current Medications Acetaminophen (Acetaminophen 325 Mg Tablet) 650 mg PO Q6H PRN PRN Reason: Headache/Pain Mild Scale (1-3) Last Admin: 06/14/22 08:28 Dose: 650 mg Al Hydroxide/Mg Hydroxide (Magnesium Hydrox/Alum Hydrox 30 Ml Oral.Susp) 30 ml PO Q6H PRN PRN Reason: Heartburn/Nausea Aripiprazole (Aripiprazole 2 Mg Tablet) 2 mg PO DAILY [facility] Last Admin: 06/14/22 08:28 Dose: 2 mg Atorvastatin Calcium (Atorvastatin Calcium 80 Mg Tablet) 80 mg PO DAILY [facility] Last Admin: 06/14/22 08:28 Dose: 80 mg Buspirone HCl (Buspirone Hcl 10 Mg Tablet) 10 mg PO BID [facility] Last Admin: 06/14/22 08:28 Dose: 10 mg Capsaicin (Capsaicin 0.025% Cream 60 Gm Tube) 1 appl TOPICAL QID PRN; Protocol PRN Reason: back Duloxetine HCl (Duloxetine Hcl 20 Mg Capsule.Dr) 20 mg PO DAILY [facility] Last Admin: 06/14/22 08:28 Dose: 20 mg Escitalopram Oxalate (Escitalopram Oxalate 10 Mg Tablet) 10 mg PO DAILY [facility] Last Admin: 06/14/22 08:28 Dose: 10 mg Gabapentin (Gabapentin 100 Mg Capsule) 100 mg PO TID [facility] Last Admin: 06/14/22 08:28 Dose: 100 mg Hydrochlorothiazide (Hydrochlorothiazide 12.5 Mg Tablet) 12.5 mg PO DAILY [facility]; Protocol Last Admin: 06/14/22 08:28 Dose: 12.5 mg Hydroxyzine HCl (Hydroxyzine Hcl 25 Mg Tablet) 25 mg PO Q6H PRN PRN Reason: Anxiety Ibuprofen (Ibuprofen 800 Mg Tablet) 800 mg PO Q8H PRN PRN Reason: Pain, Mild (Pain Scale 1-3) Last Admin: 06/14/22 10:06 Dose: 800 mg Insulin Human Lispro (Insulin Lispro 100 Unit/Ml 3 Ml Vial) 0 unit SUBCUT QIDACHS [facility]; Protocol Last Admin: 06/14/22 13:13 Dose: Not Given Ketorolac Tromethamine (Ketorolac Tromethamine 0.5% Op 5 Ml Drops) 1 drop EYE-BOTH TID [facility] Lidocaine (Lidocaine 4 % Patch Adh..Patch) 1 patch TRANSDERMA DAILY [facility]; Protocol Last Admin: 06/14/22 10:07 Dose: 1 patch Lisinopril (Lisinopril 20 Mg Tablet) 20 mg PO DAILY [facility]; Protocol Last Admin: 06/14/22 08:28 Dose: 20 mg Magnesium Hydroxide (Milk Of Magnesia 30 Ml Oral.Susp) 30 ml PO DAILY PRN PRN Reason: Constipation Metformin HCl (Metformin Hcl 1,000 Mg Tablet) 1,000 mg PO BIDWM [facility] Last Admin: 06/14/22 08:28 Dose: 1,000 mg Nicotine Polacrilex (Nicotine Polacrilex 2 Mg Gum) 4 mg BUCCAL Q2H PRN PRN Reason: Nicotine Cravings Pt Own (Trulicity 0. (5 Ml)) 0.5 ml SUBCUT Fr@2100 [facility] Prednisolone Acetate (Prednisolone Acetate 1 % Oph Susp 5 Ml Drpbtl) 1 drop EYE-BOTH BID [facility] Last Admin: 06/14/22 08:47 Dose: 1 drop Trazodone HCl (Trazodone Hcl 50 Mg Tablet) 50 mg PO BEDTIME MRX1 PRN PRN Reason: Insomnia Allergies Allergies Allergy/AdvReac Type Severity Reaction Status Date / Time No Known Allergies Allergy Verified 06/12/22 23:40 Assessment & Plan Assessment & Plan (1) Recurrent major depression: Status: Acute Code(s): F33.9 - Major depressive disorder, recurrent, unspecified Plan 62 yo male, history of depression, suicide attempts, stress of of 35 years being ill in [place], refusing to come to [place] to be with pt. Pt s/p OD nonintentional of 200 mg Trazodone (#4 50 mg tabs). Pt denies SI plan or intent. Plan: Collateral contact with family, OP team Family meeting Continue current regime. 06/14/22 Continue current regime Discharge planning Family meeting next week. Informed Consent: understands Reason for continued inpatient stay Substantial Risk for: harm to self and rapid decompensation Time Spent With Patient Time: Total time managing care of this patient today ____ minutes.
[2022-06-14 18:00] VITALS: BP 126/82; PULSE 85; RESP 16; TEMP 36.6; O2SAT 98
[2022-06-14 22:01] LABS: Glucose, Whole Blood 179 mg/dL (60-115)
[2022-06-15 07:47] LABS: Glucose, Whole Blood 130 mg/dL (60-115)
[2022-06-15] MEDS: hydroCHLOROthiazide 12.5 MG TABLET PO (08:27)
[2022-06-15] MEDS: ARIPiprazole 2 MG TABLET PO (08:27)
[2022-06-15] MEDS: DULoxetine HCl 20 MG CAPSULE.DR PO (08:27)
[2022-06-15] MEDS: metFORMIN HCl 1,000 MG TABLET 1000 MG PO ×2 (08:27→17:18)
[2022-06-15] MEDS: busPIRone HCl 10 MG TABLET PO ×2 (08:28→20:21)
[2022-06-15] MEDS: lisinopriL 20 MG TABLET PO (08:28)
[2022-06-15] MEDS: Escitalopram Oxalate 10 MG TABLET PO (08:28)
[2022-06-15] MEDS: Gabapentin 100 MG CAPSULE PO ×3 (08:28→20:21)
[2022-06-15] MEDS: Atorvastatin Calcium 80 MG TABLET PO (08:28)
[2022-06-15 08:30] VITALS: BP 110/66; PULSE 94; RESP 18; TEMP 36.4; O2SAT 95
[2022-06-15] MEDS: prednisoLONE Acetate 1 % Oph Susp 5 ML DRPBTL 1 DROP EYE-BOTH ×2 (08:30→20:23)
[2022-06-15] MEDS: Ketorolac Tromethamine 0.5% Op 5 ML DROPS 1 DROP EYE-BOTH ×3 (08:30→20:23)
[2022-06-15 12:01] LABS: Glucose, Whole Blood 207 mg/dL (60-115)
[2022-06-15] MEDS: Acetaminophen 325 MG TABLET 650 MG PO (12:02)
[2022-06-15] MEDS: Insulin Lispro 100 UNIT/ML 3 ML VIAL SUBCUT ×3 (12:04→20:19)
[2022-06-15 16:30] VITALS: BP 108/72; PULSE 95; TEMP 36.3
[2022-06-15 17:10] LABS: Glucose, Whole Blood 219 mg/dL (60-115)
[2022-06-15 20:18] LABS: Glucose, Whole Blood 168 mg/dL (60-115)
--- NOTE | 2022-06-15 22:47 | P.PNPSI_ITS ---
Subjective Subjective Date of Service: 06/15/22 Reason For Visit: Unspecified depressive disorder Interim History: Met with pt and discussed with RN. Patient reports he is doing well. Maintains he took the extra Trazodone by mistake when he woke up in the middle of the night thinking he forgot to take his medications. He reports his mood is good. He denies any SI. He has been in behavioral control on the unit and is visible. Medication Compliance: Yes Side effects from medications: No Review of Systems Review of Systems General: No fevers, malaise, unintentional weight loss HEENT: No blurred vision, diplopia. No sore throat, nasal congestion, rhinorrhe a, sinus pain, ear pain Cardiovascular: No chest pain, palpitations, or leg edema Respiratory: No shortness of breath, wheezing, cough GI: No abdominal pain, nausea, vomiting, diarrhea, constipation, melena, hematochezia : No dysuria, hematuria, increased urinary frequency, decreased urinary output MSK: No myalgia, back pain Neuro: No headaches, weakness, paresthesias Skin: No rashes or lesions Yes all other systems are reviewed and are negative Constitutional: Reports no additional constitutional complaints Eyes: Reports no additional eye complaints Reports system reviewed and no additional complaints, except as documented Cardiovascular: Reports no additional cardiovascular complaints Respiratory: Reports no additional respiratory complaints Gastrointestinal: Reports no additional gastrointestinal complaints Genitourinary: Reports no additional male genitourinary complaints Musculoskeletal: Reports no additional musculoskeletal complaints Skin/Breast: Reports system reviewed and no additional complaints, except as docu Reports system reviewed and no additional complaints, except as documented Psychiatric: Reports abnormal sleep pattern and Reports anxiety Endocrine: Reports no additional endocrine complaints Hematologic/Lymphatic: Reports no additional hematologic/lymphatic complaints Allergic/Immunologic: Reports no additional allergic/immunologic complaints Mental Status Exam Mental Status Exam Patient Appearance: Appropriate Patient Orientation: Person, Place, Time and Situation Level of Consciousness: Alert Patient Behavior: Appropriate, Talkative, Cooperative and Good Eye Contact Mood Description: Sad Affect Description: Flat and Apprehensive Patient Cognition Impaired: No Ability to Follow Directions: Good Speech Pattern: Spontaneous Speech Memory Description: Intact Diagnostics Vital Signs (24Hr): Vital Signs - 24 hr 06/15/22 08:30 06/15/22 16:30 Temperature 97.6 F 97.4 F Pulse Rate 94 95 Respiratory Rate 18 Blood Pressure 110/66 108/72 Pulse Oximetry 95 Oxygen Delivery Method Room Air BMI result Body Mass Index 27.1 Labs 06/14/22 08:03 Labs: Laboratory Results - last 48 hr 06/14/22 06/14/22 06/14/22 07:47 08:03 12:05 Sodium 139 Potassium 4.6 Chloride 103 Carbon Dioxide 27 Anion Gap 14 BUN 27 H Creatinine 1.07 Estim Creat Clear Calc 73.9 Estimated GFR > 60 POC Glucose 143 H 129 H Fasting Glucose 153 H Calcium 9.4 Total Bilirubin 1.0 AST 16 ALT 19 Alkaline Phosphatase 51 Total Protein 7.0 Albumin 4.0 06/14/22 06/15/22 06/15/22 21:30 07:43 11:57 Sodium Potassium Chloride Carbon Dioxide Anion Gap BUN Creatinine Estim Creat Clear Calc Estimated GFR POC Glucose 179 H 130 H 207 H Fasting Glucose Calcium Total Bilirubin AST ALT Alkaline Phosphatase Total Protein Albumin 06/15/22 06/15/22 16:59 20:09 Sodium Potassium Chloride Carbon Dioxide Anion Gap BUN Creatinine Estim Creat Clear Calc Estimated GFR POC Glucose 219 H 168 H Fasting Glucose Calcium Total Bilirubin AST ALT Alkaline Phosphatase Total Protein Albumin Medications Medications Current Medications Acetaminophen (Acetaminophen 325 Mg Tablet) 650 mg PO Q6H PRN PRN Reason: Headache/Pain Mild Scale (1-3) Last Admin: 06/15/22 12:02 Dose: 650 mg Al Hydroxide/Mg Hydroxide (Magnesium Hydrox/Alum Hydrox 30 Ml Oral.Susp) 30 ml PO Q6H PRN PRN Reason: Heartburn/Nausea Aripiprazole (Aripiprazole 2 Mg Tablet) 2 mg PO DAILY [facility] Last Admin: 06/15/22 08:27 Dose: 2 mg Atorvastatin Calcium (Atorvastatin Calcium 80 Mg Tablet) 80 mg PO DAILY [facility] Last Admin: 06/15/22 08:28 Dose: 80 mg Buspirone HCl (Buspirone Hcl 10 Mg Tablet) 10 mg PO BID [facility] Last Admin: 06/15/22 20:21 Dose: 10 mg Capsaicin (Capsaicin 0.025% Cream 60 Gm Tube) 1 appl TOPICAL QID PRN; Protocol PRN Reason: back Duloxetine HCl (Duloxetine Hcl 20 Mg Capsule.Dr) 20 mg PO DAILY [facility] Last Admin: 06/15/22 08:27 Dose: 20 mg Escitalopram Oxalate (Escitalopram Oxalate 10 Mg Tablet) 10 mg PO DAILY [facility] Last Admin: 04/29/23 08:28 Dose: 10 mg Gabapentin (Gabapentin 100 Mg Capsule) 100 mg PO TID [facility] Last Admin: 06/15/22 20:21 Dose: 100 mg Hydrochlorothiazide (Hydrochlorothiazide 12.5 Mg Tablet) 12.5 mg PO DAILY [facility]; Protocol Last Admin: 06/15/22 08:27 Dose: 12.5 mg Hydroxyzine HCl (Hydroxyzine Hcl 25 Mg Tablet) 25 mg PO Q6H PRN PRN Reason: Anxiety Ibuprofen (Ibuprofen 800 Mg Tablet) 800 mg PO Q8H PRN PRN Reason: Pain, Mild (Pain Scale 1-3) Last Admin: 06/14/22 10:06 Dose: 800 mg Insulin Human Lispro (Insulin Lispro 100 Unit/Ml 3 Ml Vial) 0 unit SUBCUT QIDACHS [facility]; Protocol Last Admin: 06/15/22 20:19 Dose: 2 unit Ketorolac Tromethamine (Ketorolac Tromethamine 0.5% Op 5 Ml Drops) 1 drop EYE- BOTH TID [facility] Last Admin: 06/15/22 20:23 Dose: 1 drop Lidocaine (Lidocaine 4 % Patch Adh..Patch) 1 patch TRANSDERMA DAILY [facility]; Protocol Last Admin: 06/15/22 08:33 Dose: Not Given Lisinopril (Lisinopril 20 Mg Tablet) 20 mg PO DAILY [facility]; Protocol Last Admin: 06/15/22 08:28 Dose: 20 mg Magnesium Hydroxide (Milk Of Magnesia 30 Ml Oral.Susp) 30 ml PO DAILY PRN PRN Reason: Constipation Metformin HCl (Metformin Hcl 1,000 Mg Tablet) 1,000 mg PO BIDWM [facility] Last Admin: 06/15/22 17:18 Dose: 1,000 mg Nicotine Polacrilex (Nicotine Polacrilex 2 Mg Gum) 4 mg BUCCAL Q2H PRN PRN Reason: Nicotine Cravings Pt Own (Trulicity 0. (5 Ml)) 0.5 ml SUBCUT Fr@2100 [facility] Last Admin: 06/14/22 21:10 Dose: 0.5 ml Prednisolone Acetate (Prednisolone Acetate 1 % Oph Susp 5 Ml Drpbtl) 1 drop EYE-BOTH BID [facility] Last Admin: 06/15/22 20:23 Dose: 1 drop Trazodone HCl (Trazodone Hcl 50 Mg Tablet) 50 mg PO BEDTIME MRX1 PRN PRN Reason: Insomnia Allergies Allergies Allergy/AdvReac Type Severity Reaction Status Date / Time No Known Allergies Allergy Verified 06/12/22 23:40 Assessment & Plan Assessment & Plan (1) Recurrent major depression: Status: Acute Code(s): F33.9 - Major depressive disorder, recurrent, unspecified Plan 62 yo male, history of depression, suicide attempts, stress of of 35 years being ill in [place], refusing to come to [place] to be with pt. Pt s/p OD nonintentional of 200 mg Trazodone (#4 50 mg tabs). Pt denies SI plan or intent. Plan: Collateral contact with family, OP team Family meeting Continue current regime. 06/14/22 Continue current regime Discharge planning Family meeting next week. 06/15: Continue current treatment plan. Reason for continued inpatient stay Substantial Risk for: harm to self and rapid decompensation Time Spent With Patient Time: Total time managing care of this patient today ____ minutes.
[2022-06-16 08:11] LABS: Glucose, Whole Blood 145 mg/dL (60-115)
[2022-06-16 08:25] VITALS: BP 109/77; PULSE 87; RESP 18; TEMP 35.7; O2SAT 97
[2022-06-16] MEDS: DULoxetine HCl 20 MG CAPSULE.DR PO (08:40)
[2022-06-16] MEDS: hydroCHLOROthiazide 12.5 MG TABLET PO (08:40)
[2022-06-16] MEDS: Gabapentin 100 MG CAPSULE PO ×3 (08:40→22:13)
[2022-06-16] MEDS: Escitalopram Oxalate 10 MG TABLET PO (08:40)
[2022-06-16] MEDS: ARIPiprazole 2 MG TABLET PO (08:40)
[2022-06-16] MEDS: busPIRone HCl 10 MG TABLET PO ×2 (08:40→22:11)
[2022-06-16] MEDS: metFORMIN HCl 1,000 MG TABLET 1000 MG PO ×2 (08:40→17:39)
[2022-06-16] MEDS: lisinopriL 20 MG TABLET PO (08:40)
[2022-06-16] MEDS: Atorvastatin Calcium 80 MG TABLET PO (08:40)
[2022-06-16] MEDS: prednisoLONE Acetate 1 % Oph Susp 5 ML DRPBTL 1 DROP EYE-BOTH ×2 (08:42→22:13)
[2022-06-16] MEDS: Ketorolac Tromethamine 0.5% Op 5 ML DROPS 1 DROP EYE-BOTH ×3 (08:42→22:13)
--- NOTE | 2022-06-16 09:27 | P.PNPSI_ITS ---
Subjective Subjective Date of Service: 06/16/22 Reason For Visit: Unspecified depressive disorder Interim History: Met with pt and discussed with RN. Patient reports he is doing well. Maintains he took the extra Trazodone by mistake when he woke up in the middle of the night thinking he forgot to take his medications.He is worried he will stay here for a long time and wants to be out before July because his of his niece's quinceanera. He reports his mood is good. He denies any SI. He has been in behavioral control on the unit and is visible. Review of Systems Review of Systems General: No fevers, malaise, unintentional weight loss HEENT: No blurred vision, diplopia. No sore throat, nasal congestion, rhinorrhea, sinus pain, ear pain Cardiovascular: No chest pain, palpitations, or leg edema Respiratory: No shortness of breath, wheezing, cough GI: No abdominal pain, nausea, vomiting, diarrhea, constipation, melena, hematochezia : No dysuria, hematuria, increased urinary frequency, decreased urinary output MSK: No myalgia, back pain Neuro: No headaches, weakness, paresthesias Skin: No rashes or lesions Yes all other systems are reviewed and are negative Constitutional: Reports no additional constitutional complaints Eyes: Reports no additional eye complaints Reports system reviewed and no additional complaints, except as documented Cardiovascular: Reports no additional cardiovascular complaints Respiratory: Reports no additional respiratory complaints Gastrointestinal: Reports no additional gastrointestinal complaints Genitourinary: Reports no additional male genitourinary complaints Musculoskeletal: Reports no additional musculoskeletal complaints Skin/Breast: Reports system reviewed and no additional complaints, except as docu Reports system reviewed and no additional complaints, except as documented Psychiatric: Reports abnormal sleep pattern and Reports anxiety Endocrine: Reports no additional endocrine complaints Hematologic/Lymphatic: Reports no additional hematologic/lymphatic complaints Allergic/Immunologic: Reports no additional allergic/immunologic complaints Mental Status Exam Mental Status Exam Patient Appearance: Appropriate Patient Orientation: Person, Place, Time and Situation Level of Consciousness: Alert Patient Behavior: Appropriate, Talkative, Cooperative and Good Eye Contact Mood Description: Sad Affect Description: Flat and Apprehensive Patient Cognition Impaired: No Ability to Follow Directions: Good Speech Pattern: Spontaneous Speech Memory Description: Intact Diagnostics Vital Signs (24Hr): Vital Signs - 24 hr 06/15/22 16:30 Temperature 97.4 F Pulse Rate 95 Blood Pressure 108/72 BMI result Body Mass Index 27.1 Labs 06/14/22 08:03 Labs: Laboratory Results - last 48 hr 06/14/22 06/14/22 06/14/22 08:03 12:05 21:30 Sodium 139 Potassium 4.6 Chloride 103 Carbon Dioxide 27 Anion Gap 14 BUN 27 H Creatinine 1.07 Estim Creat Clear Calc 73.9 Estimated GFR > 60 POC Glucose 129 H 179 H Fasting Glucose 153 H Calcium 9.4 Total Bilirubin 1.0 AST 16 ALT 19 Alkaline Phosphatase 51 Total Protein 7.0 Albumin 4.0 06/15/22 06/15/22 06/15/22 07:43 11:57 16:59 Sodium Potassium Chloride Carbon Dioxide Anion Gap BUN Creatinine Estim Creat Clear Calc Estimated GFR POC Glucose 130 H 207 H 219 H Fasting Glucose Calcium Total Bilirubin AST ALT Alkaline Phosphatase Total Protein Albumin 06/15/22 06/16/22 20:09 08:06 Sodium Potassium Chloride Carbon Dioxide Anion Gap BUN Creatinine Estim Creat Clear Calc Estimated GFR POC Glucose 168 H 145 H Fasting Glucose Calcium Total Bilirubin AST ALT Alkaline Phosphatase Total Protein Albumin Medications Medications Current Medications Acetaminophen (Acetaminophen 325 Mg Tablet) 650 mg PO Q6H PRN PRN Reason: Headache/Pain Mild Scale (1-3) Last Admin: 06/15/22 12:02 Dose: 650 mg Al Hydroxide/Mg Hydroxide (Magnesium Hydrox/Alum Hydrox 30 Ml Oral.Susp) 30 ml PO Q6H PRN PRN Reason: Heartburn/Nausea Aripiprazole (Aripiprazole 2 Mg Tablet) 2 mg PO DAILY [facility] Last Admin: 06/16/22 08:40 Dose: 2 mg Atorvastatin Calcium (Atorvastatin Calcium 80 Mg Tablet) 80 mg PO DAILY [facility] Last Admin: 06/16/22 08:40 Dose: 80 mg Buspirone HCl (Buspirone Hcl 10 Mg Tablet) 10 mg PO BID [facility] Last Admin: 06/16/22 08:40 Dose: 10 mg Capsaicin (Capsaicin 0.025% Cream 60 Gm Tube) 1 appl TOPICAL QID PRN; Protocol PRN Reason: back Duloxetine HCl (Duloxetine Hcl 20 Mg Capsule.Dr) 20 mg PO DAILY [facility] Last Admin: 06/16/22 08:40 Dose: 20 mg Escitalopram Oxalate (Escitalopram Oxalate 10 Mg Tablet) 10 mg PO DAILY [facility] Last Admin: 06/16/22 08:40 Dose: 10 mg Gabapentin (Gabapentin 100 Mg Capsule) 100 mg PO TID [facility] Last Admin: 06/16/22 08:40 Dose: 100 mg Hydrochlorothiazide (Hydrochlorothiazide 12.5 Mg Tablet) 12.5 mg PO DAILY [facility]; Protocol Last Admin: 06/16/22 08:40 Dose: 12.5 mg Hydroxyzine HCl (Hydroxyzine Hcl 25 Mg Tablet) 25 mg PO Q6H PRN PRN Reason: Anxiety Ibuprofen (Ibuprofen 800 Mg Tablet) 800 mg PO Q8H PRN PRN Reason: Pain, Mild (Pain Scale 1-3) Last Admin: 06/14/22 10:06 Dose: 800 mg Insulin Human Lispro (Insulin Lispro 100 Unit/Ml 3 Ml Vial) 0 unit SUBCUT QIDACHS [facility]; Protocol Last Admin: 06/16/22 08:45 Dose: Not Given Ketorolac Tromethamine (Ketorolac Tromethamine 0.5% Op 5 Ml Drops) 1 drop EYE- BOTH TID [facility] Last Admin: 06/16/22 08:42 Dose: 1 drop Lidocaine (Lidocaine 4 % Patch Adh..Patch) 1 patch TRANSDERMA DAILY [facility]; Protocol Last Admin: 06/16/22 08:43 Dose: Not Given Lisinopril (Lisinopril 20 Mg Tablet) 20 mg PO DAILY [facility]; Protocol Last Admin: 06/16/22 08:40 Dose: 20 mg Magnesium Hydroxide (Milk Of Magnesia 30 Ml Oral.Susp) 30 ml PO DAILY PRN PRN Reason: Constipation Metformin HCl (Metformin Hcl 1,000 Mg Tablet) 1,000 mg PO BIDWM [facility] Last Admin: 06/16/22 08:40 Dose: 1,000 mg Nicotine Polacrilex (Nicotine Polacrilex 2 Mg Gum) 4 mg BUCCAL Q2H PRN PRN Reason: Nicotine Cravings Pt Own (Trulicity 0. (5 Ml)) 0.5 ml SUBCUT Fr@2100 [facility] Last Admin: 06/14/22 21:10 Dose: 0.5 ml Prednisolone Acetate (Prednisolone Acetate 1 % Oph Susp 5 Ml Drpbtl) 1 drop EYE-BOTH BID [facility] Last Admin: 06/16/22 08:42 Dose: 1 drop Trazodone HCl (Trazodone Hcl 50 Mg Tablet) 50 mg PO BEDTIME MRX1 PRN PRN Reason: Insomnia Allergies Allergies Allergy/AdvReac Type Severity Reaction Status Date / Time No Known Allergies Allergy Verified 06/12/22 23:40 Assessment & Plan Assessment & Plan (1) Recurrent major depression: Status: Acute Code(s): F33.9 - Major depressive disorder, recurrent, unspecified Plan 62 yo male, history of depression, suicide attempts, stress of of 35 years being ill in [place], refusing to come to [place] to be with pt. Pt s/p OD nonintentional of 200 mg Trazodone (#4 50 mg tabs). Pt denies SI plan or intent. Plan: Collateral contact with family, OP team Family meeting Continue current regime. 06/14/22 Continue current regime Discharge planning Family meeting next week. 06/15: Continue current treatment plan. 06/16: Continue current treatment plan. Reason for continued inpatient stay Substantial Risk for: harm to self and rapid decompensation Time Spent With Patient Time: Total time managing care of this patient today ____ minutes.
[2022-06-16 12:15] LABS: Glucose, Whole Blood 160 mg/dL (60-115)
[2022-06-16] MEDS: Insulin Lispro 100 UNIT/ML 3 ML VIAL SUBCUT ×3 (12:19→22:19)
[2022-06-16 17:41] LABS: Glucose, Whole Blood 201 mg/dL (60-115)
[2022-06-16 19:55] VITALS: BP 94/70; PULSE 101; TEMP 36.3
[2022-06-16 22:31] LABS: Glucose, Whole Blood 195 mg/dL (60-115)
[2022-06-17 08:18] LABS: Glucose, Whole Blood 140 mg/dL (60-115)
[2022-06-17 08:25] VITALS: BP 145/64; PULSE 84; RESP 14; TEMP 36.1; O2SAT 99
[2022-06-17] MEDS: Atorvastatin Calcium 80 MG TABLET PO (08:29)
[2022-06-17] MEDS: busPIRone HCl 10 MG TABLET PO ×2 (08:29→21:29)
[2022-06-17] MEDS: hydroCHLOROthiazide 12.5 MG TABLET PO (08:30)
[2022-06-17] MEDS: lisinopriL 20 MG TABLET PO (08:30)
[2022-06-17] MEDS: DULoxetine HCl 20 MG CAPSULE.DR PO (08:30)
[2022-06-17] MEDS: Escitalopram Oxalate 10 MG TABLET PO (08:30)
[2022-06-17] MEDS: Gabapentin 100 MG CAPSULE PO ×3 (08:30→21:29)
[2022-06-17] MEDS: metFORMIN HCl 1,000 MG TABLET 1000 MG PO ×2 (08:30→17:30)
[2022-06-17] MEDS: ARIPiprazole 2 MG TABLET PO (08:30)
[2022-06-17] MEDS: Ketorolac Tromethamine 0.5% Op 5 ML DROPS 1 DROP EYE-BOTH ×3 (08:33→21:31)
[2022-06-17] MEDS: prednisoLONE Acetate 1 % Oph Susp 5 ML DRPBTL 1 DROP EYE-BOTH ×2 (08:33→21:31)
[2022-06-17 12:31] LABS: Glucose, Whole Blood 187 mg/dL (60-115)
[2022-06-17] MEDS: Insulin Lispro 100 UNIT/ML 3 ML VIAL SUBCUT ×3 (12:42→21:33)
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
[2022-06-17 17:38] LABS: Glucose, Whole Blood 157 mg/dL (60-115)
[2022-06-17 18:00] VITALS: BP 108/68; PULSE 88; RESP 16; TEMP 36; O2SAT 96
[2022-06-17 21:28] LABS: Glucose, Whole Blood 167 mg/dL (60-115)
[2022-06-18 08:17] LABS: Glucose, Whole Blood 139 mg/dL (60-115)
[2022-06-18 08:35] VITALS: BP 119/68; PULSE 104; RESP 14; TEMP 36.2; O2SAT 98
[2022-06-18] MEDS: hydroCHLOROthiazide 12.5 MG TABLET PO (08:39)
[2022-06-18] MEDS: ARIPiprazole 2 MG TABLET PO (08:39)
[2022-06-18] MEDS: lisinopriL 20 MG TABLET PO (08:39)
[2022-06-18] MEDS: metFORMIN HCl 1,000 MG TABLET 1000 MG PO ×2 (08:39→16:59)
[2022-06-18] MEDS: DULoxetine HCl 20 MG CAPSULE.DR PO (08:39)
[2022-06-18] MEDS: Atorvastatin Calcium 80 MG TABLET PO (08:39)
[2022-06-18] MEDS: Escitalopram Oxalate 10 MG TABLET PO (08:39)
[2022-06-18] MEDS: Gabapentin 100 MG CAPSULE PO ×3 (08:39→21:04)
[2022-06-18] MEDS: Ketorolac Tromethamine 0.5% Op 5 ML DROPS 1 DROP EYE-BOTH ×3 (08:42→21:37)
[2022-06-18] MEDS: prednisoLONE Acetate 1 % Oph Susp 5 ML DRPBTL 1 DROP EYE-BOTH ×2 (08:42→21:07)
[2022-06-18] MEDS: busPIRone HCl 10 MG TABLET PO ×2 (08:50→21:03)
[2022-06-18 12:18] LABS: Glucose, Whole Blood 148 mg/dL (60-115)
--- NOTE | 2022-06-18 16:37 | P.PNPSI_ITS ---
Subjective Subjective Date of Service: 06/18/22 Reason For Visit: Unspecified depressive disorder Subjective Notes: Conditional Voluntary Healthcare Proxy: No Guardianship: No Medical Problems Affecting Mental Status: No Interim History: Luis Antonio would like referral to a halfway. He would like to reamin as close to his gnosticist and [place] as possible. 08/10/22 is an important date for him with the gnosticist and he wants to be able to attend. 07/06/22 is also important as he will see a retinal specialist and does not want to miss that appt. He would also like a referral to a group if possible to talk about things and maybe participate in some activities. Medication Compliance: Yes Side effects from medications: No Attending Groups: Yes Review of Systems Acute medical concerns: No Medical Review of Systems: unchanged Mental Status Exam Mental Status Exam Patient Appearance: Appropriate Patient Orientation: Person, Place, Time and Situation Level of Consciousness: Alert Patient Behavior: Appropriate, Talkative, Cooperative and Good Eye Contact Mood Description: Depressed Affect Description: Flat Patient Cognition Impaired: No Ability to Follow Directions: Good Speech Pattern: Spontaneous Speech Memory Description: Intact Hallucinations: None Delusions: Not Present Perceptual Disturbances: Derealization Thought Process: Rumination Thought Content: positive for Perseveration Depressive Symptoms: Diff. Making Decisions and Low Self Esteem Judgement: Good Diagnostics Vital Signs (24Hr): Vital Signs - 24 hr 06/17/22 18:00 06/18/22 08:35 Temperature 96.8 F 97.1 F Pulse Rate 88 104 H Respiratory Rate 16 14 Blood Pressure 108/68 119/68 Pulse Oximetry 96 98 Oxygen Delivery Method Room Air Room Air BMI result Body Mass Index 27.1 Labs 06/14/22 08:03 Labs: Laboratory Results - last 48 hr 06/16/22 06/16/22 06/17/22 17:27 22:01 08:14 POC Glucose 201 H 195 H 140 H 06/17/22 06/17/22 06/17/22 12:27 17:32 21:24 POC Glucose 187 H 157 H 167 H 06/18/22 06/18/22 08:13 12:14 POC Glucose 139 H 148 H Medications Medications Current Medications Acetaminophen (Acetaminophen 325 Mg Tablet) 650 mg PO Q6H PRN PRN Reason: Headache/Pain Mild Scale (1-3) Last Admin: 06/15/22 12:02 Dose: 650 mg Al Hydroxide/Mg Hydroxide (Magnesium Hydrox/Alum Hydrox 30 Ml Oral.Susp) 30 ml PO Q6H PRN PRN Reason: Heartburn/Nausea Aripiprazole (Aripiprazole 2 Mg Tablet) 2 mg PO DAILY [facility] Last Admin: 06/18/22 08:39 Dose: 2 mg Atorvastatin Calcium (Atorvastatin Calcium 80 Mg Tablet) 80 mg PO DAILY [facility] Last Admin: 06/18/22 08:39 Dose: 80 mg Buspirone HCl (Buspirone Hcl 10 Mg Tablet) 10 mg PO BID [facility] Last Admin: 06/18/22 08:50 Dose: 10 mg Capsaicin (Capsaicin 0.025% Cream 60 Gm Tube) 1 appl TOPICAL QID PRN; Protocol PRN Reason: back Duloxetine HCl (Duloxetine Hcl 20 Mg Capsule.Dr) 20 mg PO DAILY [facility] Last Admin: 06/18/22 08:39 Dose: 20 mg Escitalopram Oxalate (Escitalopram Oxalate 10 Mg Tablet) 10 mg PO DAILY [facility] Last Admin: 06/18/22 08:39 Dose: 10 mg Gabapentin (Gabapentin 100 Mg Capsule) 100 mg PO TID [facility] Last Admin: 06/18/22 14:57 Dose: 100 mg Hydrochlorothiazide (Hydrochlorothiazide 12.5 Mg Tablet) 12.5 mg PO DAILY [facility]; Protocol Last Admin: 06/18/22 08:39 Dose: 12.5 mg Hydroxyzine HCl (Hydroxyzine Hcl 25 Mg Tablet) 25 mg PO Q6H PRN PRN Reason: Anxiety Ibuprofen (Ibuprofen 800 Mg Tablet) 800 mg PO Q8H PRN PRN Reason: Pain, Mild (Pain Scale 1-3) Last Admin: 06/14/22 10:06 Dose: 800 mg Insulin Human Lispro (Insulin Lispro 100 Unit/Ml 3 Ml Vial) 0 unit SUBCUT QIDACHS [facility]; Protocol Last Admin: 06/18/22 12:20 Dose: Not Given Ketorolac Tromethamine (Ketorolac Tromethamine 0.5% Op 5 Ml Drops) 1 drop EYE- BOTH TID [facility] Last Admin: 06/18/22 14:57 Dose: 1 drop Lidocaine (Lidocaine 4 % Patch Adh..Patch) 1 patch TRANSDERMA DAILY [facility]; Protocol Last Admin: 06/18/22 09:32 Dose: Not Given Lisinopril (Lisinopril 20 Mg Tablet) 20 mg PO DAILY [facility]; Protocol Last Admin: 06/18/22 08:39 Dose: 20 mg Magnesium Hydroxide (Milk Of Magnesia 30 Ml Oral.Susp) 30 ml PO DAILY PRN PRN Reason: Constipation Metformin HCl (Metformin Hcl 1,000 Mg Tablet) 1,000 mg PO BIDWM [facility] Last Admin: 06/18/22 08:39 Dose: 1,000 mg Nicotine Polacrilex (Nicotine Polacrilex 2 Mg Gum) 4 mg BUCCAL Q2H PRN PRN Reason: Nicotine Cravings Pt Own (Trulicity 0. (5 Ml)) 0.5 ml SUBCUT Fr@2100 [facility] Last Admin: 06/14/22 21:10 Dose: 0.5 ml Prednisolone Acetate (Prednisolone Acetate 1 % Oph Susp 5 Ml Drpbtl) 1 drop EYE-BOTH BID [facility] Last Admin: 06/18/22 08:42 Dose: 1 drop Trazodone HCl (Trazodone Hcl 50 Mg Tablet) 50 mg PO BEDTIME MRX1 PRN PRN Reason: Insomnia Allergies Allergies Allergy/AdvReac Type Severity Reaction Status Date / Time No Known Allergies Allergy Verified 06/12/22 23:40 Assessment & Plan Assessment & Plan (1) Recurrent major depression: Status: Acute Code(s): F33.9 - Major depressive disorder, recurrent, unspecified Plan 62 yo male, history of depression, suicide attempts, stress of of 35 years being ill in [place], refusing to come to [place] to be with pt. Pt s/p OD nonint entional of 200 mg Trazodone (#4 50 mg tabs). Pt denies SI plan or intent. Plan: Collateral contact with family, OP team Family meeting Continue current regime. 06/14/22 Continue current regime Discharge planning Family meeting next week. 06/15: Continue current treatment plan. 06/16: Continue current treatment plan. 06/17/22: Continue current regime and plan. 06/18/22: Detention referral Patient educated on: therapeutic strategies Informed Consent: understands Reason for continued inpatient stay Substantial Risk for: harm to self and rapid decompensation Time Spent With Patient Time: Total time managing care of this patient today ____ minutes.
[2022-06-18 16:55] LABS: Glucose, Whole Blood 162 mg/dL (60-115)
[2022-06-18] MEDS: Insulin Lispro 100 UNIT/ML 3 ML VIAL SUBCUT ×2 (17:00→21:02)
[2022-06-18 18:00] VITALS: BP 104/69; PULSE 101; RESP 18; TEMP 36.3; O2SAT 99
[2022-06-18 20:54] LABS: Glucose, Whole Blood 238 mg/dL (60-115)
[2022-06-19] MEDS: hydroCHLOROthiazide 12.5 MG TABLET PO (08:59)
[2022-06-19] MEDS: Escitalopram Oxalate 10 MG TABLET PO (08:59)
[2022-06-19] MEDS: Gabapentin 100 MG CAPSULE PO ×3 (08:59→20:59)
[2022-06-19] MEDS: busPIRone HCl 10 MG TABLET PO ×2 (08:59→20:59)
[2022-06-19] MEDS: metFORMIN HCl 1,000 MG TABLET 1000 MG PO ×2 (08:59→17:29)
[2022-06-19] MEDS: DULoxetine HCl 20 MG CAPSULE.DR PO (08:59)
[2022-06-19] MEDS: lisinopriL 20 MG TABLET PO (08:59)
[2022-06-19] MEDS: ARIPiprazole 2 MG TABLET PO (08:59)
[2022-06-19] MEDS: prednisoLONE Acetate 1 % Oph Susp 5 ML DRPBTL 1 DROP EYE-BOTH ×2 (09:01→21:01)
[2022-06-19] MEDS: Ketorolac Tromethamine 0.5% Op 5 ML DROPS 1 DROP EYE-BOTH ×3 (09:01→21:01)
[2022-06-19] MEDS: Lidocaine 4 % Patch ADH..PATCH 1 PATCH TRANSDERMA (09:04)
[2022-06-19] MEDS: Atorvastatin Calcium 80 MG TABLET PO (09:04)
[2022-06-19 09:06] VITALS: BP 111/69; PULSE 87; RESP 18; TEMP 36.4; O2SAT 98
[2022-06-19] MEDS: hydrOXYzine HCL 25 MG TABLET PO (11:01)
[2022-06-19 12:09] LABS: Glucose, Whole Blood 228 mg/dL (60-115)
[2022-06-19 12:09] LABS: Glucose, Whole Blood 146 mg/dL (60-115)
[2022-06-19] MEDS: Insulin Lispro 100 UNIT/ML 3 ML VIAL SUBCUT ×3 (12:09→21:27)
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
[2022-06-19 16:40] VITALS: BP 104/62; PULSE 94; TEMP 36.2
[2022-06-19 17:27] LABS: Glucose, Whole Blood 196 mg/dL (60-115)
[2022-06-19 21:09] VITALS: BP 108/69; PULSE 106; TEMP 36.3; O2SAT 97
[2022-06-19 21:24] LABS: Glucose, Whole Blood 229 mg/dL (60-115)
[2022-06-20 07:00] VITALS: BMI 26.3
[2022-06-20 08:17] LABS: Glucose, Whole Blood 174 mg/dL (60-115)
[2022-06-20] MEDS: Gabapentin 100 MG CAPSULE PO ×3 (08:35→21:39)
[2022-06-20] MEDS: busPIRone HCl 10 MG TABLET PO ×2 (08:35→21:40)
[2022-06-20] MEDS: lisinopriL 20 MG TABLET PO (08:35)
[2022-06-20] MEDS: metFORMIN HCl 1,000 MG TABLET 1000 MG PO ×2 (08:35→17:26)
[2022-06-20] MEDS: DULoxetine HCl 20 MG CAPSULE.DR PO (08:35)
[2022-06-20] MEDS: Atorvastatin Calcium 80 MG TABLET PO (08:35)
[2022-06-20] MEDS: hydroCHLOROthiazide 12.5 MG TABLET PO (08:36)
[2022-06-20] MEDS: ARIPiprazole 2 MG TABLET PO (08:36)
[2022-06-20] MEDS: Escitalopram Oxalate 10 MG TABLET PO (08:36)
[2022-06-20] MEDS: Insulin Lispro 100 UNIT/ML 3 ML VIAL SUBCUT ×3 (08:36→21:40)
[2022-06-20] MEDS: Ketorolac Tromethamine 0.5% Op 5 ML DROPS 1 DROP EYE-BOTH ×3 (08:39→21:41)
[2022-06-20] MEDS: prednisoLONE Acetate 1 % Oph Susp 5 ML DRPBTL 1 DROP EYE-BOTH ×2 (08:39→21:41)
[2022-06-20 10:13] VITALS: BP 109/72; PULSE 98; RESP 18; TEMP 36.1; O2SAT 100
[2022-06-20 11:48] LABS: Glucose, Whole Blood 139 mg/dL (60-115)
--- NOTE | 2022-06-20 15:05 | HO.PSYCHPN ---
Subjective Subjective Date of Service: 06/20/22 Reason For Visit: Unspecified depressive disorder Subjective Notes: Conditional Voluntary Healthcare Proxy: No Guardianship: No Medical Problems Affecting Mental Status: No Interim History: Call to pt's sister [place] with Romina Pruitt OTR/L to discuss her current concerns/discharge planning. [place] asks that pt return to her home. She does not agree with a care home referral. She asks for VNA, a medicine box and a day program to assist pt is keeping structure. She reports he does not know the area well, so when working on the [facility] application to attempt to have him remain close to family. (Pt asks to remain within a ten mile radius of family when application is being worked on.) [facility] application initiated. Medication Compliance: Yes Side effects from medications: No Attending Groups: Yes Review of Systems Acute medical concerns: No Medical Review of Systems: unchanged Mental Status Exam Mental Status Exam Patient Appearance: Appropriate Patient Orientation: Person, Place, Time and Situation Level of Consciousness: Alert Patient Behavior: Appropriate, Talkative, Cooperative and Good Eye Contact Mood Description: Depressed Affect Description: Flat Patient Cognition Impaired: No Ability to Follow Directions: Good Speech Pattern: Spontaneous Speech Memory Description: Intact Hallucinations: None Delusions: Not Present Perceptual Disturbances: Derealization Thought Process: Rumination Thought Content: positive for Perseveration Depressive Symptoms: Diff. Making Decisions and Low Self Esteem Judgement: Good Diagnostics Vital Signs (24Hr): Vital Signs - 24 hr 06/19/22 16:40 06/19/22 21:09 06/20/22 10:13 Temperature 97.1 F 97.4 F 97.0 F Pulse Rate 94 106 H 98 Respiratory Rate 18 Blood Pressure 104/62 108/69 109/72 Pulse Oximetry 97 100 Oxygen Delivery Method Room Air Room Air BMI result Body Mass Index 26.3 Labs 06/14/22 08:03 Labs: Laboratory Results - last 48 hr 06/18/22 06/18/22 06/19/22 16:52 20:50 07:47 POC Glucose 162 H 238 H 146 H 06/19/22 06/19/22 06/19/22 12:05 17:09 21:20 POC Glucose 228 H 196 H 229 H 06/20/22 06/20/22 08:12 11:44 POC Glucose 174 H 139 H Medications Medications Current Medications Acetaminophen (Acetaminophen 325 Mg Tablet) 650 mg PO Q6H PRN PRN Reason: Headache/Pain Mild Scale (1-3) Last Admin: 06/15/22 12:02 Dose: 650 mg Al Hydroxide/Mg Hydroxide (Magnesium Hydrox/Alum Hydrox 30 Ml Oral.Susp) 30 ml PO Q6H PRN PRN Reason: Heartburn/Nausea Aripiprazole (Aripiprazole 2 Mg Tablet) 2 mg PO DAILY [facility] Last Admin: 06/20/22 08:36 Dose: 2 mg Atorvastatin Calcium (Atorvastatin Calcium 80 Mg Tablet) 80 mg PO DAILY [facility] Last Admin: 06/20/22 08:35 Dose: 80 mg Buspirone HCl (Buspirone Hcl 10 Mg Tablet) 10 mg PO BID [facility] Last Admin: 06/20/22 08:35 Dose: 10 mg Capsaicin (Capsaicin 0.025% Cream 60 Gm Tube) 1 appl TOPICAL QID PRN; Protocol PRN Reason: back Duloxetine HCl (Duloxetine Hcl 20 Mg Capsule.Dr) 20 mg PO DAILY [facility] Last Admin: 06/20/22 08:35 Dose: 20 mg Escitalopram Oxalate (Escitalopram Oxalate 10 Mg Tablet) 10 mg PO DAILY [facility] Last Admin: 06/20/22 08:36 Dose: 10 mg Gabapentin (Gabapentin 100 Mg Capsule) 100 mg PO TID [facility] Last Admin: 06/20/22 14:16 Dose: 100 mg Hydrochlorothiazide (Hydrochlorothiazide 12.5 Mg Tablet) 12.5 mg PO DAILY [facility]; Protocol Last Admin: 06/20/22 08:36 Dose: 12.5 mg Hydroxyzine HCl (Hydroxyzine Hcl 25 Mg Tablet) 25 mg PO Q6H PRN PRN Reason: Anxiety Last Admin: 06/19/22 11:01 Dose: 25 mg Ibuprofen (Ibuprofen 800 Mg Tablet) 800 mg PO Q8H PRN PRN Reason: Pain, Mild (Pain Scale 1-3) Last Admin: 06/14/22 10:06 Dose: 800 mg Insulin Human Lispro (Insulin Lispro 100 Unit/Ml 3 Ml Vial) 0 unit SUBCUT QIDACHS [facility]; Protocol Last Admin: 06/20/22 11:49 Dose: Not Given Ketorolac Tromethamine (Ketorolac Tromethamine 0.5% Op 5 Ml Drops) 1 drop EYE-BOTH TID [facility] Last Admin: 06/20/22 14:17 Dose: 1 drop Lidocaine (Lidocaine 4 % Patch Adh..Patch) 1 patch TRANSDERMA DAILY [facility]; Protocol Last Admin: 06/20/22 10:14 Dose: Not Given Lisinopril (Lisinopril 20 Mg Tablet) 20 mg PO DAILY [facility]; Protocol Last Admin: 06/20/22 08:35 Dose: 20 mg Magnesium Hydroxide (Milk Of Magnesia 30 Ml Oral.Susp) 30 ml PO DAILY PRN PRN Reason: Constipation Metformin HCl (Metformin Hcl 1,000 Mg Tablet) 1,000 mg PO BIDWM [facility] Last Admin: 06/20/22 08:35 Dose: 1,000 mg Nicotine Polacrilex (Nicotine Polacrilex 2 Mg Gum) 4 mg BUCCAL Q2H PRN PRN Reason: Nicotine Cravings Pt Own (Trulicity 0. (5 Ml)) 0.5 ml SUBCUT Fr@2100 [facility] Last Admin: 06/14/22 21:10 Dose: 0.5 ml Prednisolone Acetate (Prednisolone Acetate 1 % Oph Susp 5 Ml Drpbtl) 1 drop EYE-BOTH BID [facility] Last Admin: 06/20/22 08:39 Dose: 1 drop Trazodone HCl (Trazodone Hcl 50 Mg Tablet) 50 mg PO BEDTIME MRX1 PRN PRN Reason: Insomnia Allergies Allergies Allergy/AdvReac Type Severity Reaction Status Date / Time No Known Allergies Allergy Verified 06/12/22 23:40 Assessment & Plan Assessment & Plan (1) Recurrent major depression: Status: Acute Code(s): F33.9 - Major depressive disorder, recurrent, unspecified Plan 62 yo male, history of depression, suicide attempts, stress of of 35 years being ill in [place], refusing to come to [place] to be with pt. Pt s/p OD nonintentional of 200 mg Trazodone (#4 50 mg tabs). Pt denies SI plan or intent. Plan: Collateral contact with family, OP team Family meeting Continue current regime. 06/14/22 Continue current regime Discharge planning Family meeting next week. 06/15: Continue current treatment plan. 06/16: Continue current treatment plan. 06/17/22: Continue current regime and plan. 06/18/22: [facility] referral 06/19/22: [facility] application continue current regime collateral contact with sister [facility] referrals. 06/20/22: VNA referral Day program referral Sister prefers pt return to her home, not to a care home Continue current regime Continue [facility] application. Informed Consent: understands Reason for continued inpatient stay Substantial Risk for: rapid decompensation Time Spent With Patient Time: Total time managing care of this patient today ____ minutes.
[2022-06-20 17:15] VITALS: BP 99/62; PULSE 92; TEMP 36.3
[2022-06-20 17:22] LABS: Glucose, Whole Blood 188 mg/dL (60-115)
[2022-06-20 21:12] LABS: Glucose, Whole Blood 253 mg/dL (60-115)
[2022-06-21 07:53] LABS: Glucose, Whole Blood 161 mg/dL (60-115)
[2022-06-21] MEDS: busPIRone HCl 10 MG TABLET PO ×2 (08:03→20:59)
[2022-06-21] MEDS: lisinopriL 20 MG TABLET PO (08:03)
[2022-06-21] MEDS: hydroCHLOROthiazide 12.5 MG TABLET PO (08:03)
[2022-06-21] MEDS: Acetaminophen 325 MG TABLET 650 MG PO (08:04)
[2022-06-21] MEDS: Gabapentin 100 MG CAPSULE PO ×3 (08:04→20:59)
[2022-06-21] MEDS: ARIPiprazole 2 MG TABLET PO (08:04)
[2022-06-21] MEDS: Escitalopram Oxalate 10 MG TABLET PO (08:04)
[2022-06-21] MEDS: metFORMIN HCl 1,000 MG TABLET 1000 MG PO ×2 (08:04→17:30)
[2022-06-21] MEDS: prednisoLONE Acetate 1 % Oph Susp 5 ML DRPBTL 1 DROP EYE-BOTH ×2 (08:04→21:00)
[2022-06-21] MEDS: DULoxetine HCl 20 MG CAPSULE.DR PO (08:04)
[2022-06-21] MEDS: Atorvastatin Calcium 80 MG TABLET PO (08:04)
[2022-06-21 08:05] VITALS: BP 107/75; PULSE 97; RESP 18; TEMP 36.2; O2SAT 100
[2022-06-21] MEDS: Insulin Lispro 100 UNIT/ML 3 ML VIAL SUBCUT ×4 (08:05→20:24)
[2022-06-21] MEDS: Ketorolac Tromethamine 0.5% Op 5 ML DROPS 1 DROP EYE-BOTH ×3 (08:08→21:00)
[2022-06-21 11:43] LABS: Glucose, Whole Blood 161 mg/dL (60-115)
--- NOTE | 2022-06-21 15:03 | HO.PSYCHPN ---
Subjective Subjective Date of Service: 06/21/22 Reason For Visit: Unspecified depressive disorder Subjective Notes: Conditional Voluntary Healthcare Proxy: No Guardianship: No Medical Problems Affecting Mental Status: No Interim History: [facility] application for housing mailed today after Luis Antonio reviewed and signed. [facility] made by team. Reports he is doing well, meds are effective and without SE. Review of discussion with Romina Pruitt OTR/L, pt's sister, [place], and tw on 06/20. Discussed sister not wanting pt to go to a half-way. Pt was pleased with her offer to have him continue to stay with her on a temporary basis. Discussed discharge for 06/24 or 06/25 with VNA referral. He concurs. Medication Compliance: Yes Side effects from medications: No Attending Groups: Yes Review of Systems Acute medical concerns: No Medical Review of Systems: unchanged Mental Status Exam Mental Status Exam Patient Appearance: Appropriate Patient Orientation: Person, Place, Time and Situation Level of Consciousness: Alert Patient Behavior: Appropriate, Talkative, Cooperative and Good Eye Contact Mood Description: Anxious and Apprehensive Affect Description: Anxious and Apprehensive Patient Cognition Impaired: No Ability to Follow Directions: Good Speech Pattern: Spontaneous Speech Memory Description: Intact Hallucinations: None Delusions: Not Present Perceptual Disturbances: Depersonalization Thought Process: Rumination Thought Content: positive for Circumstantial, positive for Perseveration, positive for Suicidal Ideation (denies) and positive for Homicidal Ideation (denies) Depressive Symptoms: Increased Anxiety, Thoughts of /Suicide (denies), Low Self Esteem and Difficulty Concentrating Judgement: Good Diagnostics Vital Signs (24Hr): Vital Signs - 24 hr 06/20/22 17:15 06/21/22 08:05 Temperature 97.4 F 97.1 F Pulse Rate 92 97 Respiratory Rate 18 Blood Pressure 99/62 107/75 Pulse Oximetry 100 Oxygen Delivery Method Room Air BMI result Body Mass Index 26.3 Labs 06/14/22 08:03 Labs: Laboratory Results - last 48 hr 06/19/22 06/19/22 06/20/22 17:09 21:20 08:12 POC Glucose 196 H 229 H 174 H 06/20/22 06/20/22 06/20/22 11:44 17:17 21:08 POC Glucose 139 H 188 H 253 H 06/21/22 06/21/22 07:48 11:37 POC Glucose 161 H 161 H Medications Medications Current Medications Acetaminophen (Acetaminophen 325 Mg Tablet) 650 mg PO Q6H PRN PRN Reason: Headache/Pain Mild Scale (1-3) Last Admin: 06/21/22 08:04 Dose: 650 mg Al Hydroxide/Mg Hydroxide (Magnesium Hydrox/Alum Hydrox 30 Ml Oral.Susp) 30 ml PO Q6H PRN PRN Reason: Heartburn/Nausea Aripiprazole (Aripiprazole 2 Mg Tablet) 2 mg PO DAILY [facility] Last Admin: 06/21/22 08:04 Dose: 2 mg Atorvastatin Calcium (Atorvastatin Calcium 80 Mg Tablet) 80 mg PO DAILY [facility] Last Admin: 06/21/22 08:04 Dose: 80 mg Buspirone HCl (Buspirone Hcl 10 Mg Tablet) 10 mg PO BID [facility] Last Admin: 06/21/22 08:03 Dose: 10 mg Capsaicin (Capsaicin 0.025% Cream 60 Gm Tube) 1 appl TOPICAL QID PRN; Protocol PRN Reason: back Duloxetine HCl (Duloxetine Hcl 20 Mg Capsule.Dr) 20 mg PO DAILY [facility] Last Admin: 06/21/22 08:04 Dose: 20 mg Escitalopram Oxalate (Escitalopram Oxalate 10 Mg Tablet) 10 mg PO DAILY [facility] Last Admin: 06/21/22 08:04 Dose: 10 mg Gabapentin (Gabapentin 100 Mg Capsule) 100 mg PO TID [facility] Last Admin: 06/21/22 14:00 Dose: 100 mg Hydrochlorothiazide (Hydrochlorothiazide 12.5 Mg Tablet) 12.5 mg PO DAILY [facility]; Protocol Last Admin: 06/21/22 08:03 Dose: 12.5 mg Hydroxyzine HCl (Hydroxyzine Hcl 25 Mg Tablet) 25 mg PO Q6H PRN PRN Reason: Anxiety Last Admin: 06/19/22 11:01 Dose: 25 mg Ibuprofen (Ibuprofen 800 Mg Tablet) 800 mg PO Q8H PRN PRN Reason: Pain, Mild (Pain Scale 1-3) Last Admin: 06/14/22 10:06 Dose: 800 mg Insulin Human Lispro (Insulin Lispro 100 Unit/Ml 3 Ml Vial) 0 unit SUBCUT QIDACHS [facility]; Protocol Last Admin: 06/21/22 12:11 Dose: 2 unit Ketorolac Tromethamine (Ketorolac Tromethamine 0.5% Op 5 Ml Drops) 1 drop EYE-BOTH TID [facility] Last Admin: 06/21/22 14:00 Dose: 1 drop Lidocaine (Lidocaine 4 % Patch Adh..Patch) 1 patch TRANSDERMA DAILY [facility]; Protocol Last Admin: 06/21/22 08:08 Dose: Not Given Lisinopril (Lisinopril 20 Mg Tablet) 20 mg PO DAILY [facility]; Protocol Last Admin: 06/21/22 08:03 Dose: 20 mg Magnesium Hydroxide (Milk Of Magnesia 30 Ml Oral.Susp) 30 ml PO DAILY PRN PRN Reason: Constipation Metformin HCl (Metformin Hcl 1,000 Mg Tablet) 1,000 mg PO BIDWM [facility] Last Admin: 06/21/22 08:04 Dose: 1,000 mg Nicotine Polacrilex (Nicotine Polacrilex 2 Mg Gum) 4 mg BUCCAL Q2H PRN PRN Reason: Nicotine Cravings Pt Own (Trulicity 0. (5 Ml)) 0.5 ml SUBCUT Fr@2100 [facility] Last Admin: 06/14/22 21:10 Dose: 0.5 ml Prednisolone Acetate (Prednisolone Acetate 1 % Oph Susp 5 Ml Drpbtl) 1 drop EYE-BOTH BID [facility] Last Admin: 06/21/22 08:04 Dose: 1 drop Trazodone HCl (Trazodone Hcl 50 Mg Tablet) 50 mg PO BEDTIME MRX1 PRN PRN Reason: Insomnia Allergies Allergies Allergy/AdvReac Type Severity Reaction Status Date / Time No Known Allergies Allergy Verified 06/12/22 23:40 Assessment & Plan Assessment & Plan (1) Recurrent major depression: Status: Acute Code(s): F33.9 - Major depressive disorder, recurrent, unspecified Plan 62 yo male, history of depression, suicide attempts, stress of of 35 years being ill in [place], refusing to come to [place] to be with pt. Pt s/p OD nonintentional of 200 mg Trazodone (#4 50 mg tabs). Pt denies SI plan or intent. Plan: Collateral contact with family, OP team Family meeting Continue current regime. 06/14/22 Continue current regime Discharge planning Family meeting next week. 06/15: Continue current treatment plan. 06/16: Continue current treatment plan. 06/17/22: Continue current regime and plan. 06/18/22: Prison referral 06/19/22: [facility] application continue current regime collateral contact with sister Prison referrals. 06/20/22: VNA referral Day program referral Sister prefers pt return to her home, not to a half-way Continue current regime Continue [facility] application. 06/21/22: Day Program and [facility] applications are completed Continue current regime and plan of care. Patient educated on: therapeutic strategies Informed Consent: understands Reason for continued inpatient stay Substantial Risk for: inability to function and rapid decompensation Time Spent With Patient Time: Total time managing care of this patient today ____ minutes.
[2022-06-21 16:54] LABS: Glucose, Whole Blood 252 mg/dL (60-115)
[2022-06-21 18:11] VITALS: BP 95/60; PULSE 104; TEMP 36.2
[2022-06-21 20:21] LABS: Glucose, Whole Blood 239 mg/dL (60-115)
--- NOTE | 2022-06-21 21:27 | PC.NURSE ---
Pt did not recieve trulicity, pt did not have a pen available, called pharmacy and they said to have pt bring in more.
[2022-06-22 08:02] LABS: Glucose, Whole Blood 143 mg/dL (60-115)
[2022-06-22] MEDS: metFORMIN HCl 1,000 MG TABLET 1000 MG PO ×2 (09:07→18:06)
[2022-06-22] MEDS: hydroCHLOROthiazide 12.5 MG TABLET PO (09:07)
[2022-06-22] MEDS: ARIPiprazole 2 MG TABLET PO (09:08)
[2022-06-22] MEDS: DULoxetine HCl 20 MG CAPSULE.DR PO (09:08)
[2022-06-22] MEDS: Acetaminophen 325 MG TABLET 650 MG PO (09:08)
[2022-06-22] MEDS: busPIRone HCl 10 MG TABLET PO ×2 (09:08→20:28)
[2022-06-22] MEDS: Escitalopram Oxalate 10 MG TABLET PO (09:08)
[2022-06-22] MEDS: Gabapentin 100 MG CAPSULE PO ×3 (09:08→20:28)
[2022-06-22] MEDS: Atorvastatin Calcium 80 MG TABLET PO (09:08)
[2022-06-22] MEDS: Ketorolac Tromethamine 0.5% Op 5 ML DROPS 1 DROP EYE-BOTH ×3 (09:09→20:42)
[2022-06-22] MEDS: prednisoLONE Acetate 1 % Oph Susp 5 ML DRPBTL 1 DROP EYE-BOTH ×2 (09:09→20:42)
[2022-06-22] MEDS: Lidocaine 4 % Patch ADH..PATCH 1 PATCH TRANSDERMA (09:09)
[2022-06-22 09:15] VITALS: BP 97/66; PULSE 116; RESP 16; TEMP 36.4; O2SAT 98
--- NOTE | 2022-06-22 09:33 | P.PNPSI_ITS ---
Subjective Subjective Date of Service: 06/22/22 Reason For Visit: Unspecified depressive disorder Interim History: Met with patient; discussed with team Patient reports he is doing much better and says he is good... Fine he says he is sleeping and eating well. Says auditory hallucinations have fully resolved. Mental Status Exam Mental Status Exam Patient Appearance: Appropriate Patient Orientation: Person, Place, Time and Situation Level of Consciousness: Alert Patient Behavior: Appropriate, Cooperative and Good Eye Contact Mood Description: Calm and Appropriate Affect Description: Calm, Appropriate and Anxious Patient Cognition Impaired: No Ability to Follow Directions: Good Speech Pattern: Appropriate and Spontaneous Speech Memory Description: Intact Hallucinations: None Delusions: Not Present Perceptual Disturbances: Depersonalization Thought Process: Goal Oriented Thought Content: positive for Intact, positive for Circumstantial, positive for Suicidal Ideation (denies) and positive for Homicidal Ideation (denies) Judgement: Good Judgement and Insight: Improved Diagnostics Vital Signs (24Hr): Vital Signs - 24 hr 06/21/22 18:11 06/22/22 09:15 Temperature 97.2 F 97.6 F Pulse Rate 104 H 116 H Respiratory Rate 16 Blood Pressure 95/60 97/66 Pulse Oximetry 98 Oxygen Delivery Method Room Air BMI result Body Mass Index 26.3 Labs 06/14/22 08:03 Labs: Laboratory Results - last 48 hr 06/20/22 06/20/22 06/20/22 11:44 17:17 21:08 POC Glucose 139 H 188 H 253 H 06/21/22 06/21/22 06/21/22 07:48 11:37 16:50 POC Glucose 161 H 161 H 252 H 06/21/22 06/22/22 20:17 07:57 POC Glucose 239 H 143 H Medications Medications Current Medications Acetaminophen (Acetaminophen 325 Mg Tablet) 650 mg PO Q6H PRN PRN Reason: Headache/Pain Mild Scale (1-3) Last Admin: 06/22/22 09:08 Dose: 650 mg Al Hydroxide/Mg Hydroxide (Magnesium Hydrox/Alum Hydrox 30 Ml Oral.Susp) 30 ml PO Q6H PRN PRN Reason: Heartburn/Nausea Aripiprazole (Aripiprazole 2 Mg Tablet) 2 mg PO DAILY [facility] Last Admin: 06/22/22 09:08 Dose: 2 mg Atorvastatin Calcium (Atorvastatin Calcium 80 Mg Tablet) 80 mg PO DAILY [facility] Last Admin: 06/22/22 09:08 Dose: 80 mg Buspirone HCl (Buspirone Hcl 10 Mg Tablet) 10 mg PO BID [facility] Last Admin: 06/22/22 09:08 Dose: 10 mg Capsaicin (Capsaicin 0.025% Cream 60 Gm Tube) 1 appl TOPICAL QID PRN; Protocol PRN Reason: back Duloxetine HCl (Duloxetine Hcl 20 Mg Capsule.Dr) 20 mg PO DAILY [facility] Last Admin: 06/22/22 09:08 Dose: 20 mg Escitalopram Oxalate (Escitalopram Oxalate 10 Mg Tablet) 10 mg PO DAILY [facility] Last Admin: 06/22/22 09:08 Dose: 10 mg Gabapentin (Gabapentin 100 Mg Capsule) 100 mg PO TID [facility] Last Admin: 06/22/22 09:08 Dose: 100 mg Hydrochlorothiazide (Hydrochlorothiazide 12.5 Mg Tablet) 12.5 mg PO DAILY [facility]; Protocol Last Admin: 06/22/22 09:07 Dose: 12.5 mg Hydroxyzine HCl (Hydroxyzine Hcl 25 Mg Tablet) 25 mg PO Q6H PRN PRN Reason: Anxiety Last Admin: 06/19/22 11:01 Dose: 25 mg Ibuprofen (Ibuprofen 800 Mg Tablet) 800 mg PO Q8H PRN PRN Reason: Pain, Mild (Pain Scale 1-3) Last Admin: 06/14/22 10:06 Dose: 800 mg Insulin Human Lispro (Insulin Lispro 100 Unit/Ml 3 Ml Vial) 0 unit SUBCUT QIDACHS [facility]; Protocol Last Admin: 06/22/22 08:32 Dose: Not Given Ketorolac Tromethamine (Ketorolac Tromethamine 0.5% Op 5 Ml Drops) 1 drop EYE-BOTH TID [facility] Last Admin: 06/22/22 09:09 Dose: 1 drop Lidocaine (Lidocaine 4 % Patch Adh..Patch) 1 patch TRANSDERMA DAILY [facility]; Protocol Last Admin: 06/22/22 09:09 Dose: 1 patch Lisinopril (Lisinopril 20 Mg Tablet) 20 mg PO DAILY [facility]; Protocol Last Admin: 06/22/22 09:09 Dose: Not Given Magnesium Hydroxide (Milk Of Magnesia 30 Ml Oral.Susp) 30 ml PO DAILY PRN PRN Reason: Constipation Metformin HCl (Metformin Hcl 1,000 Mg Tablet) 1,000 mg PO BIDWM [facility] Last Admin: 06/22/22 09:07 Dose: 1,000 mg Nicotine Polacrilex (Nicotine Polacrilex 2 Mg Gum) 4 mg BUCCAL Q2H PRN PRN Reason: Nicotine Cravings Pt Own (Trulicity 0. (5 Ml)) 0.5 ml SUBCUT Fr@2100 [facility] Last Admin: 06/21/22 21:04 Dose: Not Given Prednisolone Acetate (Prednisolone Acetate 1 % Oph Susp 5 Ml Drpbtl) 1 drop EYE-BOTH BID [facility] Last Admin: 06/22/22 09:09 Dose: 1 drop Trazodone HCl (Trazodone Hcl 50 Mg Tablet) 50 mg PO BEDTIME MRX1 PRN PRN Reason: Insomnia Allergies Allergies Allergy/AdvReac Type Severity Reaction Status Date / Time No Known Allergies Allergy Verified 06/12/22 23:40 Assessment & Plan Assessment & Plan (1) Recurrent major depression: Status: Acute Code(s): F33.9 - Major depressive disorder, recurrent, unspecified Plan 62 yo male, history of depression, suicide attempts, stress of of 35 years being ill in [place], refusing to come to [place] to be with pt. Pt s/p OD nonintentional of 200 mg Trazodone (#4 50 mg tabs). Pt denies SI plan or intent. Plan: Collateral contact with family, OP team Family meeting Continue current regime. 06/14/22 Continue current regime Discharge planning Family meeting next week. 06/15: Continue current treatment plan. 06/16: Continue current treatment plan. 06/17/22: Continue current regime and plan. 06/18/22: Assisted referral 06/19/22: [facility] application continue current regime collateral contact with sister Assisted referrals. 06/20/22: VNA referral Day program referral Sister prefers pt return to her home, not to a [facility] Continue current regime Continue [facility] application. 06/21/22: Day Program and [facility] applications are completed Continue current regime and plan of care. 06/22/2022: Patient reports good mood, denies any AVH; continue current treatment plan Patient educated on: diagnosis Informed Consent: understands Reason for continued inpatient stay Substantial Risk for: med/psych decompensation Time Spent With Patient Time: Total time managing care of this patient today ____ minutes.
[2022-06-22 10:04] LABS: Creatinine Clr Calc Pharmacy 75.3; Estimated Glomerular Filt Rate > 60
[2022-06-22 12:33] LABS: Glucose, Whole Blood 137 mg/dL (60-115)
[2022-06-22 17:40] LABS: Glucose, Whole Blood 255 mg/dL (60-115)
[2022-06-22 18:00] VITALS: BP 97/58; PULSE 104; TEMP 36.2; O2SAT 98
[2022-06-22] MEDS: Insulin Lispro 100 UNIT/ML 3 ML VIAL SUBCUT ×2 (18:04→20:41)
[2022-06-22] MEDS: hydrOXYzine HCL 25 MG TABLET PO (20:28)
[2022-06-22 20:39] LABS: Glucose, Whole Blood 227 mg/dL (60-115)
[2022-06-23 07:50] LABS: Glucose, Whole Blood 147 mg/dL (60-115)
[2022-06-23 08:00] VITALS: BP 110/71; PULSE 86; RESP 16; TEMP 36.1; O2SAT 97
[2022-06-23] MEDS: busPIRone HCl 10 MG TABLET PO ×2 (08:00→22:07)
[2022-06-23] MEDS: Ketorolac Tromethamine 0.5% Op 5 ML DROPS 1 DROP EYE-BOTH ×3 (08:00→21:58)
[2022-06-23] MEDS: ARIPiprazole 2 MG TABLET PO (08:00)
[2022-06-23] MEDS: Atorvastatin Calcium 80 MG TABLET PO (08:00)
[2022-06-23] MEDS: Gabapentin 100 MG CAPSULE PO ×3 (08:00→22:07)
[2022-06-23] MEDS: hydroCHLOROthiazide 12.5 MG TABLET PO (08:00)
[2022-06-23] MEDS: DULoxetine HCl 20 MG CAPSULE.DR PO (08:00)
[2022-06-23] MEDS: prednisoLONE Acetate 1 % Oph Susp 5 ML DRPBTL 1 DROP EYE-BOTH ×2 (08:00→21:59)
[2022-06-23] MEDS: metFORMIN HCl 1,000 MG TABLET 1000 MG PO ×2 (08:00→20:04)
[2022-06-23] MEDS: lisinopriL 20 MG TABLET PO (08:00)
[2022-06-23] MEDS: Escitalopram Oxalate 10 MG TABLET PO (08:00)
[2022-06-23 12:42] LABS: Glucose, Whole Blood 219 mg/dL (60-115)
[2022-06-23] MEDS: Insulin Lispro 100 UNIT/ML 3 ML VIAL SUBCUT ×2 (12:55→22:07)
--- NOTE | 2022-06-23 16:39 | PC.NURSE ---
Patient signed 3 day notice 06/23/22Friday, up 07/16/22. Ninoska Noe () and social workers notified via telephone message.
[2022-06-23 17:03] LABS: Glucose, Whole Blood 174 mg/dL (60-115)
--- NOTE | 2022-06-23 17:16 | HO.PSYCHPN ---
Subjective Subjective Date of Service: 06/23/22 Reason For Visit: Unspecified depressive disorder Interim History: Met with patient; discussed with team Patient reports he is doing well, no SI/HI, no AVH, sleeping eating well. No change since yesterday. Mental Status Exam Mental Status Exam Patient Appearance: Appropriate Patient Orientation: Person, Place, Time and Situation Level of Consciousness: Alert Patient Behavior: Appropriate, Cooperative and Good Eye Contact Mood Description: Calm and Appropriate Affect Description: Calm, Appropriate and Anxious Patient Cognition Impaired: No Ability to Follow Directions: Good Speech Pattern: Appropriate and Spontaneous Speech Memory Description: Intact Hallucinations: None Delusions: Not Present Perceptual Disturbances: Depersonalization Thought Process: Goal Oriented Thought Content: positive for Intact, positive for Circumstantial, positive for Suicidal Ideation (denies) and positive for Homicidal Ideation (denies) Judgement: Good Judgement and Insight: Improved Diagnostics Vital Signs (24Hr): Vital Signs - 24 hr 06/22/22 18:00 06/23/22 08:00 Temperature 97.2 F 97 F Pulse Rate 104 H 86 Respiratory Rate 16 Blood Pressure 97/58 L 110/71 Pulse Oximetry 98 97 Oxygen Delivery Method Room Air Room Air BMI result Body Mass Index 26.3 Labs 06/22/22 09:34 Labs: Laboratory Results - last 48 hr 06/21/22 06/22/22 06/22/22 20:17 07:57 09:34 Creatinine 1.05 Estim Creat Clear Calc 75.3 Estimated GFR > 60 POC Glucose 239 H 143 H 06/22/22 06/22/22 06/22/22 12:28 17:35 20:34 Creatinine Estim Creat Clear Calc Estimated GFR POC Glucose 137 H 255 H 227 H 06/23/22 06/23/22 06/23/22 07:46 12:38 16:59 Creatinine Estim Creat Clear Calc Estimated GFR POC Glucose 147 H 219 H 174 H Medications Medications Current Medications Acetaminophen (Acetaminophen 325 Mg Tablet) 650 mg PO Q6H PRN PRN Reason: Headache/Pain Mild Scale (1-3) Last Admin: 06/22/22 09:08 Dose: 650 mg Al Hydroxide/Mg Hydroxide (Magnesium Hydrox/Alum Hydrox 30 Ml Oral.Susp) 30 ml PO Q6H PRN PRN Reason: Heartburn/Nausea Aripiprazole (Aripiprazole 2 Mg Tablet) 2 mg PO DAILY [facility] Last Admin: 06/23/22 08:00 Dose: 2 mg Atorvastatin Calcium (Atorvastatin Calcium 80 Mg Tablet) 80 mg PO DAILY [facility] Last Admin: 06/23/22 08:00 Dose: 80 mg Buspirone HCl (Buspirone Hcl 10 Mg Tablet) 10 mg PO BID [facility] Last Admin: 06/23/22 08:00 Dose: 10 mg Capsaicin (Capsaicin 0.025% Cream 60 Gm Tube) 1 appl TOPICAL QID PRN; Protocol PRN Reason: back Duloxetine HCl (Duloxetine Hcl 20 Mg Capsule.Dr) 20 mg PO DAILY [facility] Last Admin: 06/23/22 08:00 Dose: 20 mg Escitalopram Oxalate (Escitalopram Oxalate 10 Mg Tablet) 10 mg PO DAILY [facility] Last Admin: 06/23/22 08:00 Dose: 10 mg Gabapentin (Gabapentin 100 Mg Capsule) 100 mg PO TID [facility] Last Admin: 06/23/22 14:27 Dose: 100 mg Hydrochlorothiazide (Hydrochlorothiazide 12.5 Mg Tablet) 12.5 mg PO DAILY [facility]; Protocol Last Admin: 06/23/22 08:00 Dose: 12.5 mg Hydroxyzine HCl (Hydroxyzine Hcl 25 Mg Tablet) 25 mg PO Q6H PRN PRN Reason: Anxiety Last Admin: 06/22/22 20:28 Dose: 25 mg Ibuprofen (Ibuprofen 800 Mg Tablet) 800 mg PO Q8H PRN PRN Reason: Pain, Mild (Pain Scale 1-3) Last Admin: 06/14/22 10:06 Dose: 800 mg Insulin Human Lispro (Insulin Lispro 100 Unit/Ml 3 Ml Vial) 0 unit SUBCUT QIDACHS [facility]; Protocol Last Admin: 06/23/22 12:55 Dose: 4 unit Ketorolac Tromethamine (Ketorolac Tromethamine 0.5% Op 5 Ml Drops) 1 drop EYE-BOTH TID [facility] Last Admin: 06/23/22 14:28 Dose: 1 drop Lidocaine (Lidocaine 4 % Patch Adh..Patch) 1 patch TRANSDERMA DAILY [facility]; Protocol Last Admin: 06/23/22 08:04 Dose: Not Given Lisinopril (Lisinopril 20 Mg Tablet) 20 mg PO DAILY [facility]; Protocol Last Admin: 06/23/22 08:00 Dose: 20 mg Magnesium Hydroxide (Milk Of Magnesia 30 Ml Oral.Susp) 30 ml PO DAILY PRN PRN Reason: Constipation Metformin HCl (Metformin Hcl 1,000 Mg Tablet) 1,000 mg PO BIDWM [facility] Last Admin: 06/23/22 08:00 Dose: 1,000 mg Nicotine Polacrilex (Nicotine Polacrilex 2 Mg Gum) 4 mg BUCCAL Q2H PRN PRN Reason: Nicotine Cravings Pt Own (Trulicity 0. (5 Ml)) 0.5 ml SUBCUT Fr@2100 [facility] Last Admin: 06/21/22 21:04 Dose: Not Given Prednisolone Acetate (Prednisolone Acetate 1 % Oph Susp 5 Ml Drpbtl) 1 drop EYE-BOTH BID [facility] Last Admin: 06/23/22 08:00 Dose: 1 drop Trazodone HCl (Trazodone Hcl 50 Mg Tablet) 50 mg PO BEDTIME MRX1 PRN PRN Reason: Insomnia Allergies Allergies Allergy/AdvReac Type Severity Reaction Status Date / Time No Known Allergies Allergy Verified 06/12/22 23:40 Assessment & Plan Assessment & Plan (1) Recurrent major depression: Status: Acute Code(s): F33.9 - Major depressive disorder, recurrent, unspecified Plan 62 yo male, history of depression, suicide attempts, stress of of 35 years being ill in [place], refusing to come to [place] to be with pt. Pt s/p OD nonintentional of 200 mg Trazodone (#4 50 mg tabs). Pt denies SI plan or intent. Plan: Collateral contact with family, OP team Family meeting Continue current regime. 06/14/22 Continue current regime Discharge planning Family meeting next week. 06/15: Continue current treatment plan. 06/16: Continue current treatment plan. 06/17/22: Continue current regime and plan. 06/18/22: Alf referral 06/19/22: [facility] application continue current regime collateral contact with sister Alf referrals. 06/20/22: VNA referral Day program referral Sister prefers pt return to her home, not to a care home Continue current regime Continue [facility] application. 06/21/22: Day Program and [facility] applications are completed Continue current regime and plan of care. 06/22/2022: Patient reports good mood, denies any AVH; continue current treatment plan 06/23/2022: Remains stable; continue current treatment plan Patient educated on: diagnosis Informed Consent: understands Reason for continued inpatient stay Substantial Risk for: stable for discharge Time Spent With Patient Time: Total time managing care of this patient today ____ minutes.
[2022-06-23 18:00] VITALS: BP 112/68; PULSE 88; O2SAT 97
[2022-06-23 21:51] LABS: Glucose, Whole Blood 199 mg/dL (60-115)
[2022-06-23] MEDS: hydrOXYzine HCL 25 MG TABLET PO (22:09)
[2022-06-23] MEDS: Acetaminophen 325 MG TABLET 650 MG PO (22:11)
[2022-06-24 08:00] LABS: Glucose, Whole Blood 149 mg/dL (60-115)
[2022-06-24 08:46] VITALS: BP 119/78; PULSE 77; RESP 18; TEMP 36.1; O2SAT 98
[2022-06-24] MEDS: Atorvastatin Calcium 80 MG TABLET PO (08:48)
[2022-06-24] MEDS: metFORMIN HCl 1,000 MG TABLET 1000 MG PO ×2 (08:48→17:42)
[2022-06-24] MEDS: Gabapentin 100 MG CAPSULE PO ×3 (08:48→21:21)
[2022-06-24] MEDS: hydroCHLOROthiazide 12.5 MG TABLET PO (08:49)
[2022-06-24] MEDS: Escitalopram Oxalate 10 MG TABLET PO (08:49)
[2022-06-24] MEDS: DULoxetine HCl 20 MG CAPSULE.DR PO (08:49)
[2022-06-24] MEDS: ARIPiprazole 2 MG TABLET PO (08:49)
[2022-06-24] MEDS: busPIRone HCl 10 MG TABLET PO ×2 (08:49→21:21)
[2022-06-24] MEDS: prednisoLONE Acetate 1 % Oph Susp 5 ML DRPBTL 1 DROP EYE-BOTH ×2 (08:52→21:24)
[2022-06-24] MEDS: Ketorolac Tromethamine 0.5% Op 5 ML DROPS 1 DROP EYE-BOTH ×3 (08:53→21:22)
[2022-06-24] MEDS: lisinopriL 20 MG TABLET PO (08:54)
[2022-06-24] MEDS: Acetaminophen 325 MG TABLET 650 MG PO ×2 (09:31→21:19)
--- NOTE | 2022-06-24 12:17 | HO.PSYCHPN ---
Subjective Subjective Date of Service: 06/24/22 Reason For Visit: Unspecified depressive disorder Subjective Notes: Conditional Voluntary Healthcare Proxy: No Guardianship: No Medical Problems Affecting Mental Status: No Interim History: Met with pt and occupational therapy manager. Pt reports he will return home to sister's house tomorrow. Connection made with [facility] for OP appt. Pt reports lower middle quadrant pain and asks to be seen by hospitalist prior to discharge-consult ordered along with urine culture, labs. Reports med regime to be tolerated and effective. Agrees to VNA upon discharge and will follow up with appointments as scheduled. [facility] application sent 06/21/22. Medication Compliance: Yes Side effects from medications: No Attending Groups: Yes Review of Systems Acute medical concerns: No Medical Review of Systems: unchanged Mental Status Exam Mental Status Exam Patient Appearance: Appropriate Patient Orientation: Person, Place, Time and Situation Level of Consciousness: Alert Patient Behavior: Appropriate, Talkative, Cooperative and Good Eye Contact Mood Description: Appropriate Affect Description: Appropriate Patient Cognition Impaired: No Ability to Follow Directions: Good Speech Pattern: Spontaneous Speech Memory Description: Intact Hallucinations: None Delusions: Not Present Thought Process: Intact and Goal Oriented Thought Content: positive for Intact and positive for Goal Oriented Depressive Symptoms: Low Self Esteem Judgement: Good Diagnostics Vital Signs (24Hr): Vital Signs - 24 hr 06/23/22 18:00 06/24/22 08:46 Temperature 97.0 F Pulse Rate 88 77 Respiratory Rate 18 Blood Pressure 112/68 119/78 Pulse Oximetry 97 98 Oxygen Delivery Method Room Air Room Air BMI result Body Mass Index 26.3 Labs 06/22/22 09:34 Labs: Laboratory Results - last 48 hr 06/22/22 06/22/22 06/22/22 12:28 17:35 20:34 POC Glucose 137 H 255 H 227 H 06/23/22 06/23/22 06/23/22 07:46 12:38 16:59 POC Glucose 147 H 219 H 174 H 06/23/22 06/24/22 21:47 07:55 POC Glucose 199 H 149 H Medications Medications Current Medications Acetaminophen (Acetaminophen 325 Mg Tablet) 650 mg PO Q6H PRN PRN Reason: Headache/Pain Mild Scale (1-3) Last Admin: 06/24/22 09:31 Dose: 650 mg Al Hydroxide/Mg Hydroxide (Magnesium Hydrox/Alum Hydrox 30 Ml Oral.Susp) 30 ml PO Q6H PRN PRN Reason: Heartburn/Nausea Aripiprazole (Aripiprazole 2 Mg Tablet) 2 mg PO DAILY [facility] Last Admin: 06/24/22 08:49 Dose: 2 mg Atorvastatin Calcium (Atorvastatin Calcium 80 Mg Tablet) 80 mg PO DAILY [facility] Last Admin: 06/24/22 08:48 Dose: 80 mg Buspirone HCl (Buspirone Hcl 10 Mg Tablet) 10 mg PO BID [facility] Last Admin: 06/24/22 08:49 Dose: 10 mg Capsaicin (Capsaicin 0.025% Cream 60 Gm Tube) 1 appl TOPICAL QID PRN; Protocol PRN Reason: back Duloxetine HCl (Duloxetine Hcl 20 Mg Capsule.Dr) 20 mg PO DAILY [facility] Last Admin: 06/24/22 08:49 Dose: 20 mg Escitalopram Oxalate (Escitalopram Oxalate 10 Mg Tablet) 10 mg PO DAILY [facility] Last Admin: 06/24/22 08:49 Dose: 10 mg Gabapentin (Gabapentin 100 Mg Capsule) 100 mg PO TID [facility] Last Admin: 06/24/22 08:48 Dose: 100 mg Hydrochlorothiazide (Hydrochlorothiazide 12.5 Mg Tablet) 12.5 mg PO DAILY [facility]; Protocol Last Admin: 06/24/22 08:49 Dose: 12.5 mg Hydroxyzine HCl (Hydroxyzine Hcl 25 Mg Tablet) 25 mg PO Q6H PRN PRN Reason: Anxiety Last Admin: 06/23/22 22:09 Dose: 25 mg Ibuprofen (Ibuprofen 800 Mg Tablet) 800 mg PO Q8H PRN PRN Reason: Pain, Mild (Pain Scale 1-3) Last Admin: 06/14/22 10:06 Dose: 800 mg Insulin Human Lispro (Insulin Lispro 100 Unit/Ml 3 Ml Vial) 0 unit SUBCUT QIDACHS [facility]; Protocol Last Admin: 06/24/22 08:10 Dose: Not Given Ketorolac Tromethamine (Ketorolac Tromethamine 0.5% Op 5 Ml Drops) 1 drop EYE-BOTH TID [facility] Last Admin: 06/24/22 08:53 Dose: 1 drop Lidocaine (Lidocaine 4 % Patch Adh..Patch) 1 patch TRANSDERMA DAILY [facility]; Protocol Last Admin: 06/24/22 08:53 Dose: Not Given Lisinopril (Lisinopril 20 Mg Tablet) 20 mg PO DAILY [facility]; Protocol Last Admin: 06/24/22 08:54 Dose: 20 mg Magnesium Hydroxide (Milk Of Magnesia 30 Ml Oral.Susp) 30 ml PO DAILY PRN PRN Reason: Constipation Metformin HCl (Metformin Hcl 1,000 Mg Tablet) 1,000 mg PO BIDWM [facility] Last Admin: 06/24/22 08:48 Dose: 1,000 mg Nicotine Polacrilex (Nicotine Polacrilex 2 Mg Gum) 4 mg BUCCAL Q2H PRN PRN Reason: Nicotine Cravings Pt Own (Trulicity 0. (5 Ml)) 0.5 ml SUBCUT Fr@2100 [facility] Last Admin: 06/21/22 21:04 Dose: Not Given Prednisolone Acetate (Prednisolone Acetate 1 % Oph Susp 5 Ml Drpbtl) 1 drop EYE-BOTH BID [facility] Last Admin: 06/24/22 08:52 Dose: 1 drop Trazodone HCl (Trazodone Hcl 50 Mg Tablet) 50 mg PO BEDTIME MRX1 PRN PRN Reason: Insomnia Allergies Allergies Allergy/AdvReac Type Severity Reaction Status Date / Time No Known Allergies Allergy Verified 06/12/22 23:40 Assessment & Plan Assessment & Plan (1) Recurrent major depression: Status: Acute Code(s): F33.9 - Major depressive disorder, recurrent, unspecified Plan 62 yo male, history of depression, suicide attempts, stress of of 35 years being ill in [place], refusing to come to [place] to be with pt. Pt s/p OD nonintentional of 200 mg Trazodone (#4 50 mg tabs). Pt denies SI plan or intent. Plan: Collateral contact with family, OP team Family meeting Continue current regime. 06/14/22 Continue current regime Discharge planning Family meeting next week. 06/15: Continue current treatment plan. 06/16: Continue current treatment plan. 06/17/22: Continue current regime and plan. 06/18/22: Care Home referral 06/19/22: [facility] application continue current regime collateral contact with sister Care Home referrals. 06/20/22: VNA referral Day program referral Sister prefers pt return to her home, not to a correction Continue current regime Continue [facility] application. 06/21/22: Day Program and [facility] applications are completed Continue current regime and plan of care. 06/22/2022: Patient reports good mood, denies any AVH; continue current treatment plan 06/23/2022: Remains stable; continue current treatment plan 06/24/22: Reports lower middle quadrant pain-OP connection made with urology. Pt asks to be seen prior to discharge. Urine culture, labs ordered. Hospitalist consult ordered as pt reports pain is severe. Discharge on 06/25/22 Patient educated on: medication risk/benefits and therapeutic strategies Informed Consent: understands Reason for continued inpatient stay Substantial Risk for: rapid decompensation Time Spent With Patient Time: Total time managing care of this patient today ____ minutes.
[2022-06-24 12:20] LABS: MANUAL DIFF FLAG NO
[2022-06-24 12:23] LABS: Basophils Percent Auto 0.3 % (0-2); Eosinophils Absolute Auto 0.1 X10*3/uL (0.0-0.4); Eosinophils Percent Auto 1.3 % (0-4); Hematocrit 37.8 % (42.0-52.0); Hemoglobin 12.2 g/dl (14.0-18.0); Imm Gran Abs Auto 0.02 X10*3/uL (0.00-0.03); Imm Gran Pct Auto 0.3 % (0.0-0.4); Lymphocytes Absolute Auto 2.4 X10*3/uL (1.2-4.9); Mean Corpuscular HGB Conc 32.3 g/dl (31.0-36.0); Mean Corpuscular Hemoglobin 29.4 pg (27.0-33.0); Mean Corpuscular Volume 91.1 fL (80.0-98.0); Mean Platelet Volume 9.8 fL (9.4-12.4); Monocytes Absolute Auto 0.4 X10*3/uL (0.1-1.2); Monocytes Percent Auto 5.7 % (2-11); Neutrophils Absolute Auto 4.8 x10*3/uL (2.0-8.3); Neutrophils Percent Auto 61.4 % (45-73); Platelet Count 217 X10*3/uL (160-400); Red Blood Count 4.15 X10*6/uL (4.60-5.80); Red Cell Distribution Width 11.9 % (11.0-16.0); White Blood Count 7.7 X10*3/uL (4.8-10.8)
[2022-06-24 12:50] LABS: Glucose, Whole Blood 185 mg/dL (60-115)
[2022-06-24] MEDS: Insulin Lispro 100 UNIT/ML 3 ML VIAL SUBCUT ×3 (12:53→21:18)
[2022-06-24 13:09] LABS: Alanine Aminotransferase 23 U/L (0-40); Albumin Level 4.1 g/dL (3.5-5.0); Alkaline Phosphatase 48 U/L (39-117); Anion Gap 12 (12-20); Aspartate Amino Transferase 16 U/L (5-37); Bilirubin Total 1.1 mg/dL (0.0-1.0); Blood Urea Nitrogen 20 mg/dL (9-16); Calcium 9.6 mg/dL (8.4-10.2); Carbon Dioxide 29 mmol/L (22-29); Chloride 102 mmol/L (96-108); Creatinine Clr Calc Pharmacy 73.9; Estimated Glomerular Filt Rate > 60; Glucose Random 191 mg/dL (60-115); Potassium 4.5 mmol/L (3.3-5.1); Sodium 138 mmol/L (135-145); Total Protein 7.1 g/dL (6.5-8.0)
[2022-06-24 17:17] LABS: Glucose, Whole Blood 233 mg/dL (60-115)
[2022-06-24 17:48] LABS: Appearance Urine Cloudy; Color Urine Yellow; Glucose Urine UA 100 mg/dL (Negative); Leukocyte Esterase Urine Large (3+) (Negative); Nitrite Urine Negative (Negative); Specific Gravity - Urine 1.015 (1.005-1.025); UMIC TRIGGER UA YES; Urine Blood Trace (Negative); Urine Ketones Negative (Negative); Urine Protein Trace mg/dL (Neg-Trace)
[2022-06-24 17:53] LABS: Bacteria Urine 4+ (None Seen); Hyaline Casts Urine 0-2 /LPF (0-2); RBC Urine 0-2 /HPF (0-2); Squamous Epithelial Cell Urine 0-2 /HPF (0-2); WBC Urine >50 /HPF (0-5)
[2022-06-24 18:00] VITALS: BP 94/64; PULSE 103; TEMP 36.9; O2SAT 97
--- NOTE | 2022-06-24 18:05 | PM.EVENT ---
Event Note Date of Service: 06/24/22 Event Note: Patient seen and examined for suprapubic pressure ongoing for 3-4 days. He reports associated dysuria, increased urinary frequency, and urinary urgency. There is also right low back pain. Denies any fevers, chills, hematuria, nausea, vomiting. Denies any history of UTI or nephrolithiasis. Urinalysis showing 3+ leukocytes, positive urinary sediment, 4+ bacteria. UC pending. Vitals stable, patient afebrile. Blood cultures ordered. Pt initiated on cefuroxime 500mg BID x 7 days. ID consulted for further abx recommendations for complicated UTI in male patient. Time Spent With Patient Time: Total time managing care of this patient today ____ minutes.
[2022-06-24 21:14] LABS: Glucose, Whole Blood 208 mg/dL (60-115)
[2022-06-25 07:56] LABS: Glucose, Whole Blood 183 mg/dL (60-115)
[2022-06-25] MEDS: Atorvastatin Calcium 80 MG TABLET PO (08:19)
[2022-06-25] MEDS: Escitalopram Oxalate 10 MG TABLET PO (08:19)
[2022-06-25] MEDS: lisinopriL 20 MG TABLET PO (08:19)
[2022-06-25] MEDS: Gabapentin 100 MG CAPSULE PO (08:19)
[2022-06-25] MEDS: busPIRone HCl 10 MG TABLET PO (08:19)
[2022-06-25] MEDS: metFORMIN HCl 1,000 MG TABLET 1000 MG PO (08:19)
[2022-06-25] MEDS: prednisoLONE Acetate 1 % Oph Susp 5 ML DRPBTL 1 DROP EYE-BOTH (08:19)
[2022-06-25] MEDS: hydroCHLOROthiazide 12.5 MG TABLET PO (08:19)
[2022-06-25] MEDS: DULoxetine HCl 20 MG CAPSULE.DR PO (08:19)
[2022-06-25] MEDS: ARIPiprazole 2 MG TABLET PO (08:19)
[2022-06-25 08:20] VITALS: BP 101/64; PULSE 83; RESP 16; TEMP 36.1; O2SAT 98
[2022-06-25] MEDS: Ketorolac Tromethamine 0.5% Op 5 ML DROPS 1 DROP EYE-BOTH (08:28)
[2022-06-25] MEDS: Insulin Lispro 100 UNIT/ML 3 ML VIAL SUBCUT (08:28)
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
== END 2022-06-25 11:51 | disposition home or self-care (01) | DRG 751 ==
PROVIDERS: Physician Assistant; Student in an Organized Health Care Education/Training Program; Admitting Provider Psychiatry & Neurology Psychiatry; PCP Student in an Organized Health Care Education/Training Program; Visit Provider Clinical Nurse Specialist Psychiatric/Mental Health, Adult
DX: F33.9 Major depressive disorder, recurrent, unspecified (principal); R45.851 Suicidal ideations; E11.9 Type 2 diabetes mellitus without complications; E78.5 Hyperlipidemia, unspecified; N39.0 Urinary tract infection, site not specified; I10 Essential (primary) hypertension; H40.9 Unspecified glaucoma; Z87.891 Personal history of nicotine dependence; Z79.84 Long term (current) use of oral hypoglycemic drugs; Z79.899 Other long term (current) drug therapy
CPT/HCPCS: 36415; 80053; 81001; 82565; 82947; 85025; 87040; 87086; 87088; 87186

== ENCOUNTER → 2022-08-15 14:51 | Outpatient (BNVA) | payer OTHER, SELFPAY | PROVIDERS: PCP Student in an Organized Health Care Education/Training Program; Visit Provider Urology | DX: N39.0 Urinary tract infection, site not specified (principal); E11.69 Type 2 diabetes mellitus with other specified complication; N52.1 Erectile dysfunction due to diseases classified elsewhere; R39.12 Poor urinary stream; R39.15 Urgency of urination; N40.0 Benign prostatic hyperplasia without lower urinary tract symptoms | CPT/HCPCS: 99202 ==

== ENCOUNTER 2022-08-19 10:18 | Outpatient (REF) | payer OTHER, SELFPAY | END 2022-08-19 10:19 | disposition home or self-care (01) | LOC: HO.10HDL 10:18 | PROVIDERS: Visit Provider Urology | DX: N52.9 Male erectile dysfunction, unspecified (principal) | CPT/HCPCS: 36415; 82947; 83001; 83002; 83036; 84402; 84403 ==